=== PATIENT | female | born 1945 | race Caucasian/White ===

== ENCOUNTER 2020-09-04 18:04 | Inpatient (IN) | payer OTHER, MEDICARE ==
--- OUTSIDE RECORDS SUMMARY | 2020-09-04 18:55 | XMS ---
:1945 Author Organization [facility] Care Team Providers Name Role Phone Harsha Obregon Unavailable Unavailable SabasHarsha paredes Unavailable Unavailable Ringstad, Sasha Unavailable Unavailable Ringstad, Sasha Unavailable Unavailable Ringstad, Sasha Unavailable Unavailable Ringstad, Sasha Unavailable Unavailable Ringstad, Sasha Unavailable Unavailable Ringstad, Sasha Unavailable Unavailable Ringstad, Sasha Unavailable Unavailable Ringstad, Sasha Unavailable Unavailable Ringstad, Sasha Unavailable Unavailable Ringstad, Sasha Unavailable Unavailable Ringstad, Sasha Unavailable Unavailable Enrrique Aguilar Unavailable [phone] Vazquez, Makenna Unavailable Unavailable Vazquez, Makenna Unavailable Unavailable Vazquez, Makenna Unavailable Unavailable Vazquez, Makenna Unavailable Unavailable Vazquez, Makenna Unavailable Unavailable Vazquez, Makenna Unavailable Unavailable Vazquez, Makenna Unavailable Unavailable Vazquez, Makenna Unavailable Unavailable Vazquez, Makenna Unavailable Unavailable Vazquez, Makenna Unavailable Unavailable Aszalos, Shannan Julisa Unavailable Unavailable Aszalos, Julisa Unavailable Unavailable Aszalos, Julisa Unavailable Unavailable Aszalos, Julisa Unavailable Unavailable Aszalos, Julisa Unavailable Unavailable Aszalos, Julisa Unavailable Unavailable Aszalos, Julisa Unavailable Unavailable Aszalos, Julisa Unavailable Unavailable Aszalos, Julisa Unavailable Unavailable Lisa Oates MD Unavailable Unavailable Lisa Oates MD Unavailable Unavailable Иван, Lisa MD Unavailable Unavailable Иван, Lisa MD Unavailable Unavailable Иван, Lisa MD Unavailable Unavailable Иван, Lisa MD Unavailable Unavailable Иван, Lisa MD Unavailable Unavailable Иван, Lisa MD Unavailable Unavailable Иван, Lisa MD Unavailable Unavailable Иван, Lisa MD Unavailable Unavailable Иван, Lisa MD Unavailable Unavailable Иван, Lisa MD Unavailable Unavailable Иван, Lisa MD Unavailable Unavailable Иван, Lisa MD Unavailable Unavailable Иван, Lisa MD Unavailable Unavailable Coloka-Kump, DO Unavailable Unavailable Coloka-Kump, DO Unavailable Unavailable Coloka-Kump, DO Unavailable Unavailable Coloka-Kump, DO Unavailable Unavailable Coloka-Kump, DO Unavailable Unavailable Coloka-Kump, DO Unavailable Unavailable Coloka-Kump, DO Unavailable Unavailable Coloka-Kump, DO Unavailable Unavailable Coloka-Kump, DO Unavailable Unavailable Coloka-Kump, DO Unavailable Unavailable Coloka-Kump, DO Unavailable Unavailable Coloka-Kump, DO Unavailable Unavailable Coloka-Kump, DO Unavailable Unavailable Coloka-Kump, DO Unavailable Unavailable Coloka-Kump, DO Unavailable Unavailable Coloka-Kump, DO Unavailable Unavailable Coloka-Kump, DO Unavailable Unavailable Ringstad Unavailable Unavailable Ringstad Unavailable Unavailable Ringstad Unavailable Unavailable Ringstad Unavailable Unavailable Ringstad Unavailable Unavailable Ringstad Unavailable Unavailable Ringstad Unavailable Unavailable Ringstad Unavailable Unavailable Ringstad Unavailable Unavailable Ringstad Unavailable Unavailable Ringstad Unavailable Unavailable Re-disclosure Warning The records that you are about to access may contain information from federally- assisted alcohol or drug abuse programs. If such information is present, then the following federally mandated warning applies: This information has been disclosed to you from records protected by federal confidentiality rules (42 CFR part 2). The federal rules prohibit you from making any further disclosure of this information unless further disclosure is expressly permitted by the written consent of the person to whom it pertains or as otherwise permitted by 42 CFR part 2. A general authorization for the release of medical or other information is NOT sufficient for this purpose. The Federal rules restrict any use of the information to criminally investigate or prosecute any alcohol or drug abuse patient.The records that you are about to access may contain highly sensitive health information, the redisclosure of which is protected by Article 27-F of the [place] State Public Health law. If you continue you may haveaccess to information: Regarding HIV / AIDS; Provided by facilities licensed or operated by the [facility] Office of Mental Health; or Provided by the [facility] Office for People With Developmental Disabilities. If such information is present, then the following [facility] mandated warning applies: This information has been disclosed to you from confidential records which are protected by state law. State law prohibits you from making any further disclosure of this information without the specific written consent of the person to whom it pertains, or as otherwise permitted by law. Any unauthorized further disclosure in violation of state law may result in a fine or fpc sentence or both. A general authorization for the release of medical or other information is NOT sufficient authorization for further disclosure. Encounters Encounter Providers Location Date Indications Data Source(s ) Attender: [facility] 07/28/2020 NEXT ( int [facility] 05:06:00 [facility] [place] PM EDT - Center) 07/28/2020 05:06:00 PM EDT Outpatient 06/23/2020 [facility] 12:48:00 Medical Center PM EDT Outpatient 06/23/2020 [facility] 12:00:00 Medical Center AM EDT Outpatient Attender: Makenna Aden 06/11/2020 [facility] VelezAdmitter: 04:53:00 Medical Ce nter Makenna PM EDT VelezReferrer: Makenna Vazquez OutpatientOFFICE/ Attender: [facility] 06/11/2020 MELISSA ([facility] OUTPATIENT VISIT, [facility] 04:53:00 [facility] Medical EST PM EDT - Center) 06/11/2020 04:53:00 PM EDT Attender: [facility] 06/11/2020 CLARITZA N ([facility] 01:15:00 [facility] Medic al PM EDT - Center) 06/11/2020 01:15:00 PM EDT Outpatient 06/11/2020 [facility] 11:25:00 Medical Center AM EDT Outpatient 06/11/2020 [facility] 12:00:00 Medical Center AM EDT Attender: [facility] 04/29/2020 [facility] [place] AM EDT - Center) 04/29/2020 09:15:00 AM EDT Attender: [facility] 03/28/2020 MELISSA ( int [facility] 02:18:00 [facility] [place] PM EDT - Center) 03/28/2020 02:18:00 PM EDT Attender: [facility] 02/01/2020 [facility] ( int [facility] 12:00:00 [facility] [place] PM EDT - Center) 02/01/2020 12:00:00 PM EDT Outpatient Attender: H 02/01/2020 [facility] Sasha 11:01:00 Medical Center RingstadAdmitter AM EDT : Sasha Sosaerrer : Sasha Falcon OutpatientOFFICE/ Attender: [facility] 02/01/2020 [facility] ([facility] OUTPATIENT VISIT, [facility] 11:01:00 [facility] Medical [facility] AM EDT - Center) 02/01/2020 11:01:00 AM EDT Outpatient 02/01/2020 [facility] 10:38:00 Medical [place] AM EDT Outpatient 02/01/2020 [facility] 10:37:00 Medical [place] AM EDT Outpatient 02/01/2020 [facility] 12:00:00 Medical Center AM EDT Outpatient Attender: Amy Aden 01/18/2020 [facility] Jacque sephs [facility] 02:11:00 Medical Kunal r DOAdmitter: PM EST Rodika Coloka-Kump DOReferrer: Rodika Coloka-Kump DO OutpatientOFFICE/ Attender: [facility] 01/18/2020 KARLEEGEN ([facility] OUTPATIENT VISIT, [facility] 02:11:00 [facility] Medical [facility] PM EST - Center) 01/18/2020 02:11:00 PM EST Outpatient 01/18/2020 [facility] 12:23:00 Medical Center PM EST Outpatient 01/18/2020 [facility] 12:00:00 Medical Center AM EST Attender: [facility] 01/16/2020 KARLEE EN ([facility] 04:27:00 [facility] PM EST - Center) 01/16/2020 04:27:00 PM EST Outpatient 01/08/2020 [facility] 11:32:00 Medical Center AM EST Outpatient Attender: Amy Aden 01/08/2020 [facility] 11:08:00 Medical Rebele r DOAdmitter: AM EST Rodika Col[facility]ump DOReferrer: Amy Torresoka-Kumbekah DO OutpatientOFFICE/ Attender: Harsha [facility] 01/08/2020 NEXTGEN [facility] 11[facility]08[facility]00 [facility] EST AM EST - Center) 01/08/2020 11:08:00 AM EST Outpatient 01/08/2020 [facility] 12:00:00 Medical Center AM EST Attender: [facility] 12/11/2019 NEXTGE N ([facility] 11:20:00 [facility] AM EST - Center) 12/11/2019 11:20:00 AM EST Attender: [facility] 09/24/2019 NEXTGE N ([facility] 05:08:00 [facility] PM EST - Center) 09/24/2019 05:08:00 PM EST Attender: [facility] 09/13/2019 NEXTGE N ([facility] 11:02:00 [facility] l AM EDT - Center) 09/13/2019 11:02:00 AM EDT Attender: [facility] 07/16/2019 NEXTGE N ([facility] 11:05:00 [facility] l AM EDT - Center) 07/16/2019 11:05:00 AM EDT Medications Medication Brand Start Product Dose Route Administrative Pharmacy [facility] Indications Reaction Description Data Name Date Form Instructions Instructions Source(s) Losartan [facility] active TAKE 1 NEX TGEN Potassium AN 2020 TABLET(50 ([place] t 50 MG Oral 50MG 12:00: MG) BY MOUTH Adore Tablet TABLET 00 AM EVERY DAY Medic al [facility] EDT [place]) 50MG TABLETS Losartan [facility] complet TAKE 1 NE XTGEN Potassium AN 2020 ed TABLET(50 ([place] t 50 MG Oral 50MG 12:00: MG) BY MOUTH Adore Tablet TABLET 00 AM EVERY DAY [facility] al LOSARTAN EDT [place]) 50MG TABLETS Losartan [facility] complet TAKE 1 NE XTGEN Potassium AN 2020 ed TABLET(50 ([place] t 50 MG Oral 50MG 12:00: MG) BY MOUTH Adore Tablet TABLET 00 AM EVERY DAY Medic al LOSARTAN EDT [place]) 50MG TABLETS Losartan [facility] complet TAKE 1 NE XTGEN Potassium an 50 2019 ed TABLET(50 (Diaz nt 50 MG Oral mg 12:00: MG) BY MOUTH Adore Tablet tablet 00 AM EVERY DAY Medic al losartan 50 EDT Center) mg tablet Medication administered onsite 12 HR Mucinex DM 30 01/08/2020 1.00 ORAL active 12 HR NEXTGEN Dextromethorphan mg-600 mg 12:00:00 AM {tablet} dextromethorphan ([facility] Hydrobromide 30 tablet,extended EST hydrobromide 30 Adore MG / Guaifenesin release 12 hr MG / guaifenesin Medical 600 MG Extended 600 MG Ex tended Center) Release Oral Release Oral Tablet [Mucinex Tablet [M ucinex DM] Mucinex DM 30 DM] mg-600 mg tablet,extended release 12 hr 120 ACTUAT Pulmicort 01/08/2020 1.00 RESPI active 120 ACTUAT NEXTGEN Budesonide 0.16 Flexhaler 180 12:00:00 AM {puff} RATOR budesonide 0.18 (Saint MG/ACTUAT Dry mcg/actuation EST Y MG /ACTUAT Dry Adore Powder Inhaler breath activated (INHA Powder Inhaler Medical [Pulmicort] LATIO [Pulmicort] Center) Pulmicort N) Flexhaler 180 mcg/actuation breath activated Azithromycin 250 azithromycin 250 01/08/2020 2.00 ORAL complet take 2 tablet by NEXTGEN MG Oral Tablet mg tablet 12:00:00 AM {tbl} ed oral route every (Saint azithromycin 250 EST day for 1 day Adore mg tablet then 1 tablet M edical (250 mg) by oral Lorna ter) route once daily for 4 days Chlorthalidone 25 chlorthalidone 01/08/2020 1.00 ORAL active take 1 tablet by NEXTGEN MG Oral Tablet 25 mg tablet 12:00:00 AM {tablet} oral route every (Saint chlorthalidone 25 EST day Jacque sephs mg tablet Medical [place]) Losartan losartan 50 mg 01/08/2020 complet TAKE 1 TABLET(50 NEXTGEN Potassium 50 MG tablet 12:00:00 AM ed MG) BY MOUTH (Saint Oral Tablet EST EVERY DAY Chris ephs losartan 50 mg Medic al tablet Center) atorvastatin 20 atorvastatin 20 01/08/2020 active TAKE 1 TABLET BY NEXTGEN MG Oral Tablet mg tablet 12:00:00 AM ORAL ROUTE EVERY ([facility] atorvastatin 20 EST DAY [facility] mg tablet Medical Center) Losartan LOSARTAN 50MG 12/11/2019 complet TAKE 1 TABLET(50 NEXTGEN Potassium 50 MG TABLETS 12:00:00 AM ed MG) BY MOUTH (Saint Oral Tablet EST EVERY DAY Chris ephs LOSARTAN 50MG Medica l TABLETS [place]) atorvastatin 20 atorvastatin 20 09/24/2019 complet TAKE 1 TABLET BY NEXTGEN MG Oral Tablet mg tablet 12:00:00 AM ed ORAL ROUTE EVERY ([facility] atorvastatin 20 EST DAY [employer] [employer] mg tablet Medical [place]) Losartan losartan 50 mg 09/13/2019 complet TAKE 1 TABLET NEXTGEN Potassium 50 MG tablet 12:00:00 AM ed (50MG) BY ORAL (Saint Oral Tablet EDT ROUTE EVERY D AY Adore losartan 50 mg Medic al tablet Center) Losartan losartan 50 mg 07/16/2019 complet TAKE 1 TABLET NEXTGEN Potassium 50 MG tablet 12:00:00 AM ed (50MG) BY ORAL (Saint Oral Tablet EDT ROUTE EVERY D AY Adore losartan 50 mg Medic al tablet [place]) atorvastatin 20 atorvastatin 20 05/10/2019 1.00 ORAL c omplet take 1 tablet by NEXTGEN MG Oral Tablet mg tablet 12:00:00 AM {tbl} ed oral route every ([facility] atorvastatin 20 EDT day [facility] mg tablet [facility]) Losartan losartan 50 mg 05/10/2019 complet TAKE 1 TABLET NEXTGEN Potassium 50 MG tablet 12:00:00 AM ed (50MG) BY ORAL (Saint Oral Tablet EDT ROUTE EVERY D AY Adore losartan 50 mg Medic al tablet Center) Chlorthalidone 25 chlorthalidone 05/10/2019 1.00 ORAL complet take 1 tablet by NEXTGEN MG Oral Tablet 25 mg tablet 12:00:00 AM {tbl} ed oral route every ([facility] chlorthalidone 25 EDT day Jacque sephs mg tablet Medical [place]) Insurance Providers Payer name Policy type Policy ID Covered Covered democrat's Policy P oriana / Coverage democrat ID relationship to Pichardo Inf ormation type pichardo [facility] [id number] SP [id number] CARE OPTIONS MEDICARE [id number] SP [id number] M [id number] 01 [id number] [facility] O [id number] 01 [id number] M [id number] A Problems, Conditions, and Diagnoses Code Display Name Description Problem Type Effective Dates Data Source(s) K58.0 Irritable bowel IRRITABLE BOWEL Diagnosis 06/11/2020 [place] 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 DIARRHEA Z71.89 Other specified OTHER SPECIFIED Diagnosis 02/01/2020 [place] silvia Avitia counseling COUNSELING 11:01:00 AM EDT Medical C enter E78.5 Hyperlipidemia, HYPERLIPIDEMIA, Diagnosis 02/01/2020 [place] Pillais unspecified UNSPECIFIED 11:01:00 AM EDT Medical Center I10 Essential ESSENTIAL Diagnosis 02/01/2020 [facility] Avitia (primary) (PRIMARY) 11:01:00 AM EDT Medical C enter hypertension HYPERTENSION Z13.9 Encounter for ENCOUNTER FOR Diagnosis 01/18/2020 [facility] Jacque monroy screening, SCREENING, 02:11:00 PM EST Medical C enter unspecified UNSPECIFIED Z00.00 Encounter for ENCNTR FOR GENERAL Diagnosis 01/18/2020 Diaz zafar Adore general adult ADULT MEDICAL EXAM 02:11:00 PM [facility] medical W/O ABNORMAL examination FINDINGS without abnormal findings R05 Cough COUGH Diagnosis 01/08/2020 [facility] Pillais 11:08:00 AM EST Medical C enter Surgeries/Procedures Procedure Description Date Indications Data Source(s) OFFICE/OUTPATIENT VISIT, 06/11/2020 NEX TGEN ([facility] EST 12:00:00 AM EDT [facility] 06/11/2020 [place]) 12:00:00 AM EDT OFFICE/OUTPATIENT VISIT, 02/01/2020 NEX TGEN ([facility] EST 12:00:00 AM EDT [facility] 02/01/2020 [place]) 12:00:00 AM EDT OFFICE/OUTPATIENT VISIT, 01/18/2020 NEX TGEN ([facility] 12:00:[address] [facility] 01/18/2020 [place]) 12:00:00 AM EST ROUTINE VENIPUNCTURE 01/18/2020 NEXTGEN ([facility] 12:00:[address] [facility] 01/18/2020 [place]) 12:00:00 AM EST OFFICE/OUTPATIENT VISIT, 01/08/2020 NEX TGEN ([facility] EST 12:00:00 AM EST [facility] 01/08/2020 [place]) 12:00:00 AM EST Results ID Date Data Source [id number] 08/30/2020 09:17:00 AM EDT [facility] Name Value Range Interpretation Description Data Sup porting Code Source(s) Document(s ) 2019 Novel [facility] Coronavirus RNA Interpretation Unspecified Specimen Qualitative JACOB Probe Detection This lab was ordered by [facility][id number] and reported by [facility]. ID Date Data Source [id number] 07/13/2020 05:04:00 PM EDT [facility] Name Value Range Interpretation Code Description Data Dipti rce(s) Supporting Document(s ) SARS-CoV-2 [facility] N gene Resp Ql JACOB+probe This lab was ordered by [facility] and reported by [facility]. ID Date Data Source Liver 06/12/2020 09:39:00 AM EDT [facility] Profile.[id number] Name Value Range Interpretation Description Data Sup porting Code Source(s) Document(s ) Aspartate 14-36 <content [facility] aminotransferase styleCode="Bold"> Tristen hs [Enzymatic Aspartate Medical activity/volume] Aminotransferase Center in Serum or Plasma (AST) </content>24 IU/L<content styleCode="Italic s"> (14-36 IU/L)</content> Bilirubin.total 0.2-1.3 <content [facility] [Mass/volume] in styleCode="Bold"> Tristen hs Serum or Plasma Bilirubin Total Medical </content>0.4 Center MG/DL<content styleCode="Italic s"> (0.2-1.3 MG/DL)</content> Alanine 7-30 <content [facility] aminotransferase styleCode="Bold"> Tristen hs [Enzymatic Alanine Medical activity/volume] Aminotransferase Center in Serum or Plasma (ALT) </content>14 IU/L<content styleCode="Italic s"> (7-30 IU/L)</content> Alkaline 38-126 <content [facility] phosphatase styleCode="Bold"> Adore [Enzymatic Alkaline Medical activity/volume] Phosphatase (ALP) Cente r in Serum or Plasma </content>72 IU/L<content styleCode="Italic s"> (38-126 IU/L)</content> Albumin 3.5-5.0 <content [facility] [Mass/volume] in styleCode="Bold"> Tristen hs Serum or Plasma Albumin Medical </content>4.0 Center G/DL<content styleCode="Italic s"> (3.5-5.0 G/DL)</content> ID Date Data Source HematologyRou.[id number] 06/12/2020 09:39:00 AM EDT [facility] 0400 Name Value Range Interpretation Description Data Sup porting Code Source(s) Document(s ) Leukocytes 4.4-11.0 <content [facility] [#/volume] in styleCode="Bold Adore Blood by ">White Blood Medical Automated count Cell Count Center </content>6.38 KCUMM<content styleCode="Ital ics"> (4.4-11.0 KCUMM)</content > Erythrocytes 4.0-5.1 <content Saint [#/volume] in styleCode="Bold Adore Blood by ">Red Blood Medical Automated count Cell Count Center </content>4.11 MCUMM<content styleCode="Ital ics"> (4.0-5.1 MCUMM)</content > Hemoglobin 12.3-16. <content Saint [Mass/volume] in 0 styleCode="Bold Adore Blood ">Hemoglobin Medical </content>12.8 Center G/DL<content styleCode="Ital ics"> (12.3-16.0 G/DL)</content> Hematocrit 36.0-46. <content [facility] [Volume 0 styleCode="Bold Adore Fraction] of ">Hematocrit Medical Blood by </content>37.9 Center Automated count %<content styleCode="Ital ics"> (36.0-46.0 %)</content> Erythrocyte mean 26.0-34. <content [facility] corpuscular 0 styleCode="Bold Adore hemoglobin ">Mean Medical [Entitic mass] Corposcular Center by Automated Hemoglobin count </content>31.1 PG<content styleCode="Ital ics"> (26.0-34.0 PG)</content> Erythrocyte mean 80.0-100 <content [facility] corpuscular .0 styleCode="Bold Adore volume [Entitic ">Mean Medical volume] by Corpuscular Center Automated count Volume </content>92.2 FL<content styleCode="Ital ics"> (80.0-100.0 FL)</content> Erythrocyte mean 32.0-37. <content [facility] corpuscular 0 styleCode="Bold Adore hemoglobin ">Mean Corpus. Medical concentration Hgb Center [Mass/volume] by Concentration Automated count (MCHC) </content>33.8 G/DL<content styleCode="Ital ics"> (32.0-37.0 G/DL)</content> Platelets 130-400 <content [facility] [#/volume] in styleCode="Bold Adore Blood by ">Platelet Medical Automated count Count Center </content>327 KCUMM<content styleCode="Ital ics"> (130-400 KCUMM)</content > Erythrocyte 11.5-14. <content [facility] distribution 5 styleCode="Bold Adore width [Ratio] by ">Red Cell Medical Automated count Distribution Center Width </content>13.1 %<content styleCode="Ital ics"> (11.5-14.5 %)</content> Platelet mean 8.0-11.0 <content [facility] volume [Entitic styleCode="Bold Adore volume] in Blood ">Mean Platelet Medical by Automated Volume Center count </content>9.8 FL<content styleCode="Ital ics"> (8.0-11.0 FL)</content> Lymphocytes 24.0-44. <content [facility] [#/volume] in 0 styleCode="Bold Adore Blood by ">Lymphocyte Medical Automated count </content>33.4 Center %<content styleCode="Ital ics"> (24.0-44.0 %)</content> Neutrophils 36-66 <content [facility] [#/volume] in styleCode="Bold Adore Blood by ">Neutrophil Medical Automated count </content>56.8 Center %<content styleCode="Ital ics"> (36-66 %)</content> UNK 1.6-7.3 <content Saint styleCode="Bold Adore ">Neutrophil Medical Count Center </content>3.63 KCUMM<content styleCode="Ital ics"> (1.6-7.3 KCUMM)</content > UNK 1.0-4.8 <content Saint styleCode="Bold Adore ">Lymphocyte Medical Count Center </content>2.13 KCUMM<content styleCode="Ital ics"> (1.0-4.8 KCUMM)</content > UNK 0.2-0.9 <content Saint styleCode="Bold Adore ">Monocyte Medical Count Center </content>0.45 KCUMM<content styleCode="Ital ics"> (0.2-0.9 KCUMM)</content > UNK 0.0-0.6 <content Saint styleCode="Bold Adore ">Eosinophil Medical Count Center </content>0.11 KCUMM<content styleCode="Ital ics"> (0.0-0.6 KCUMM)</content > Eosinophils 0-5.0 <content Saint [#/volume] in styleCode="Bold Adore Blood by ">Eosinophil Medical Automated count </content>1.7 Center %<content styleCode="Ital ics"> (0-5.0 %)</content> Monocytes 3.0-10.0 <content [facility] [#/volume] in styleCode="Bold Adore Blood by ">Monocyte Medical Automated count </content>7.1 Center %<content styleCode="Ital ics"> (3.0-10.0 %)</content> UNK 0.0-0.3 <content Saint styleCode="Bold Adore ">Basophil Medical Count Center </content>0.03 KCUMM<content styleCode="Ital ics"> (0.0-0.3 KCUMM)</content > UNK 0.0 <content Saint styleCode="Bold Adore ">Nucleated Red Medical Blood Cell Center Count </content>0.00 KCUMM<content styleCode="Ital ics"> (0.0 KCUMM)</content > Basophils 0.0-1.0 <content Saint [#/volume] in styleCode="Bold Adore Blood by ">Basophil Medical Automated count </content>0.5 Center %<content styleCode="Ital ics"> (0.0-1.0 %)</content> UNK 0 <content Saint styleCode="Bold Adore ">Nucleated Red Medical Blood Cell Center </content>0.0 /100<content styleCode="Ital ics"> (0 /100)</content> UNK < 1 <content Saint styleCode="Bold Adore ">Immature Medical Granulocyte Center Ratio </content>0.5 %<content styleCode="Ital ics"> (< 1 %)</content> UNK 0-0.1 <content Saint styleCode="Bold Adore ">Immature Medical Granulocyte Center Count </content>0.03 KCUMM<content styleCode="Ital ics"> (0-0.1 KCUMM)</content > ID Date Data Source GFR(Creatinine).[id number] 06/12/2020 09:39:00 AM EDT [facility] 0-0400 Name Value Range Interpretation Code Description Data Dipti rce(s) Supporting Document(s ) UNK > 60 <content [facility] styleCode="Bold"> Medical Cent er EGFR </content>86 GFR<content styleCode="Italic s"> (> 60 GFR)</content> ID Date Data Source CHMROUTINECCDA.[id number] 06/12/2020 09:39:00 AM EDT [facility] -0400 Name Value Range Interpretation Description Data Sup porting Code Source(s) Document(s ) UNK 2.3-3.5 <content [facility] styleCode="Bold Medical ">Globulin Center </content>3.0 G/DL<content styleCode="Ital ics"> (2.3-3.5 G/DL)</content> Protein 6.3-8.2 <content [facility] [Mass/volum styleCode="Bold Medical e] in Serum ">Total Protein Center or Plasma </content>7.0 G/DL<content styleCode="Ital ics"> (6.3-8.2 G/DL)</content> UNK >= 1.0 <content [facility] styleCode="Bold Medical ">AG Ratio Center </content>1.3 <content styleCode="Ital ics"> (>= 1.0 )</content> ID Date Data Source [facility] HOSP[facility].[id number] 06/12/2020 09:39:00 AM EDT [facility] Name Value Range Interpretation Description Data Sup porting Code Source(s) Document(s ) Chloride 98-107 Above high <content [facility] [Moles/volume] in normal styleCode="Bold"> Loco phs Serum or Plasma Chloride Medical </content>110 Center MEQ/L H<content styleCode="Italic s"> (98-107 MEQ/L)</content> Sodium 137-145 <content [facility] [Moles/volume] in styleCode="Bold"> Loco phs Serum or Plasma Sodium Medical </content>140 Center MEQ/L<content styleCode="Italic s"> (137-145 MEQ/L)</content> Potassium 3.5-5.3 <content [facility] [Moles/volume] in styleCode="Bold"> Loco phs Serum or Plasma Potassium Medical </content>4.4 Center MEQ/L<content styleCode="Italic s"> (3.5-5.3 MEQ/L)</content> Carbon dioxide, 22-30 <content [facility] total styleCode="Bold"> Adore [Moles/volume] in Carbon Dioxide Medical Serum or Plasma </content>22 Center MEQ/L<content styleCode="Italic s"> (22-30 MEQ/L)</content> Calcium 8.4-10. <content [facility] [Mass/volume] in 2 styleCode="Bold"> Tristen hs Serum or Plasma Calcium Medical </content>9.5 Center MG/DL<content styleCode="Italic s"> (8.4-10.2 MG/DL)</content> Glucose 74-106 <content [facility] [Mass/volume] in styleCode="Bold"> Tristen hs Serum or Plasma Glucose Medical </content>99 Center MG/DL<content styleCode="Italic s"> (74-106 MG/DL)</content> UNK 7-17 <content Saint styleCode="Bold"> Adore BUN </content>17 Medical MG/DL<content Center styleCode="Italic s"> (7-17 MG/DL)</content> Creatinine 0.5-1.3 <content [facility] [Mass/volume] in styleCode="Bold"> Tristen hs Serum or Plasma Creatinine Medical </content>0.7 Center MG/DL<content styleCode="Italic s"> (0.5-1.3 MG/DL)</content> UNK > 60 <content Saint styleCode="Bold"> [facility] EGFR </content>86 Medical GFR<content Center styleCode="Italic s"> (> 60 GFR)</content> Alanine 7-30 <content Saint aminotransferase styleCode="Bold"> Tristen hs [Enzymatic Alanine Medical activity/volume] Aminotransferase Center in Serum or Plasma (ALT) </content>14 IU/L<content styleCode="Italic s"> (7-30 IU/L)</content> Alkaline 38-126 <content Saint phosphatase styleCode="Bold"> [facility] [Enzymatic Alkaline Medical activity/volume] Phosphatase (ALP) Cente r in Serum or Plasma </content>72 IU/L<content styleCode="Italic s"> (38-126 IU/L)</content> Aspartate 14-36 <content Saint aminotransferase styleCode="Bold"> Tristen hs [Enzymatic Aspartate Medical activity/volume] Aminotransferase Center in Serum or Plasma (AST) </content>24 IU/L<content styleCode="Italic s"> (14-36 IU/L)</content> Bilirubin.total 0.2-1.3 <content [facility] [Mass/volume] in styleCode="Bold"> Tristen hs Serum or Plasma Bilirubin Total Medical </content>0.4 Center MG/DL<content styleCode="Italic s"> (0.2-1.3 MG/DL)</content> Albumin 3.5-5.0 <content [facility] [Mass/volume] in styleCode="Bold"> Tristen hs Serum or Plasma Albumin Medical </content>4.0 Center G/DL<content styleCode="Italic s"> (3.5-5.0 G/DL)</content> ID Date Data Source Urinalysis.[id number] 06/11/2020 07:00:00 PM EDT [facility] 0 Name Value Range Interpretation Description Data Sup porting Code Source(s) Document(s ) UNK CLEAR <content Saint styleCode="Tommy Pillais d">Urine Medical Clarity Center </content>CLOU DY <content styleCode="Carina lics"> (CLEAR )</content> Color of Urine YELLOW <content Saint styleCode="[facility] d">Color, Medical Urine Center </content>YELL OW <content styleCode="Carina lics"> (YELLOW )</content> UNK NEGATIVE <content Saint styleCode="Tommy Adore d">Urine Medical Bilirubin Center </content>NEGA TIVE <content styleCode="Carina lics"> (NEGATIVE )</content> Specific 1.015-1.02 Above high <content Saint gravity of 5 normal styleCode="Tommy Avitia Urine by Test d">Urine Medical strip Specific Center [place] </content>>= 1.030 H<content styleCode="Carina lics"> (1.015-1.025 )</content> Ketones NEGATIVE <content Saint [Mass/volume] styleCode="Tommy Adore in Urine by d">Urine Medical Test strip Ketone Center </content>NEGA TIVE MG/DL<content styleCode="Carina lics"> (NEGATIVE MG/DL)</conten t> Glucose NEGATIVE <content Saint [Mass/volume] styleCode="Tommy Adore in Urine by d">Urine Medical Test strip Glucose Center </content>NEGA TIVE MG/DL<content styleCode="Carina lics"> (NEGATIVE MG/DL)</conten t> Hemoglobin NEGATIVE <content Saint [Presence] in styleCode="Tommy Pillais Urine by Test d">Urine Blood Medical strip </content>NEGA Center TIVE <content styleCode="Carina lics"> (NEGATIVE )</content> Protein NEGATIVE <content Saint [Mass/volume] styleCode="Tommy Adore in Urine by d">Urine Medical Test strip Protein Center </content>NEGA TIVE MG/DL<content styleCode="Carina lics"> (NEGATIVE MG/DL)</conten t> Urobilinogen 0.2-1.0 <content Saint [Units/volume] styleCode="Tommy Avitia in Urine by d">Urine Medical Test strip Urobilinogen Center </content>0.2 MG/DL<content styleCode="Carina lics"> (0.2-1.0 MG/DL)</conten t> pH of Urine by 4.5-8.0 <content Saint Test strip styleCode="Tomym Adore d">Urine pH Medical </content>6.0 Center <content styleCode="Carina lics"> (4.5-8.0 )</content> Leukocyte NEGATIVE <content Saint esterase styleCode="Tommy Pillais [Presence] in d">Urine Medical Urine by Test Leukocyte Center strip </content>NEGA TIVE <content styleCode="Carina lics"> (NEGATIVE )</content> Nitrite NEGATIVE <content Saint [Presence] in styleCode="Tommy Avitia Urine by Test d">Urine Medical strip Nitrite Center </content>NEGA TIVE <content styleCode="Carina lics"> (NEGATIVE )</content> ID Date Data Source Liver 01/22/2020 09:29:00 AM EST [facility] Profile.[id number] Name Value Range Interpretation Description Data Sup porting Code Source(s) Document(s ) Aspartate 14-36 <content Saint aminotransferase styleCode="Bold"> Tristen hs [Enzymatic Aspartate Medical activity/volume] Aminotransferase Center in Serum or Plasma (AST) </content>29 IU/L<content styleCode="Italic s"> (14-36 IU/L)</content> Alanine 7-30 <content [facility] aminotransferase styleCode="Bold"> Tristen hs [Enzymatic Alanine Medical activity/volume] Aminotransferase Center in Serum or Plasma (ALT) </content>20 IU/L<content styleCode="Italic s"> (7-30 IU/L)</content> Albumin 3.5-5.0 <content Saint [Mass/volume] in styleCode="Bold"> Tristen hs Serum or Plasma Albumin Medical </content>4.1 Center G/DL<content styleCode="Italic s"> (3.5-5.0 G/DL)</content> Bilirubin.total 0.2-1.3 <content [facility] [Mass/volume] in styleCode="Bold"> Tristen hs Serum or Plasma Bilirubin Total Medical </content>0.5 Center MG/DL<content styleCode="Italic s"> (0.2-1.3 MG/DL)</content> Alkaline 38-126 <content [facility] phosphatase styleCode="Bold"> Adore [Enzymatic Alkaline Medical activity/volume] Phosphatase (ALP) Cente r in Serum or Plasma </content>71 IU/L<content styleCode="Italic s"> (38-126 IU/L)</content> ID Date Data Source LIPID.[id number] 01/22/2020 09:29:00 AM EST [facility] Name Value Range Interpretation Description Data Sup porting Code Source(s) Document(s ) UNK > 60 <content Saint styleCode="Tommy Adore d">HDL- Medical Cholesterol Center </content>69 MG/DL<content styleCode="Carina lics"> (> 60 MG/DL)</conten t> Triglyceride < 150 <content Saint [Mass/volume] in styleCode="Tommy Adore Serum or Plasma d">Triglycerid [facility] </content>87 MG/DL<content styleCode="Carina lics"> (< 150 MG/DL)</conten t> UNK < 100 <content Saint styleCode="Tommy Adore d">LDL-Cholest [facility] </content>83 MG/DL<content styleCode="Carina lics"> (< 100 MG/DL)</conten t> Cholesterol -<200 <content Saint [Mass/volume] in styleCode="Tommy Adore Serum or Plasma d">Cholesterol Medical </content>169 Center MG/DL<content styleCode="Carina lics"> (-<200 MG/DL)</conten t> ID Date Data Source Hormones.[id number] 01/22/2020 09:29:00 AM EST [place] [facility] Center Name Value Range Interpretation Description Data Sup porting Code Source(s) Document(s ) Thyrotropin 0.465-4. <content Saint [Units/volume] 68 styleCode="Tommy Adore in Serum or d">Thyroid Medical Plasma by Stimulating Center Detection Hormone limit <= 0.05 </content>3.74 mIU/L MIU/L<content styleCode="Carina lics"> (0.465-4.68 MIU/L)</conten t> ID Date Data Source HematologyRou.[id number] 01/22/2020 09:29:00 AM EST [facility] 0400 Name Value Range Interpretation Description Data Sup porting Code Source(s) Document(s ) Erythrocytes 4.0-5.1 <content Saint [#/volume] in styleCode="Bold Adore Blood by ">Red Blood Medical Automated count Cell Count Center </content>4.23 MCUMM<content styleCode="Ital ics"> (4.0-5.1 MCUMM)</content > Leukocytes 4.4-11.0 <content Saint [#/volume] in styleCode="Bold Adore Blood by ">White Blood Medical Automated count Cell Count Center </content>5.03 KCUMM<content styleCode="Ital ics"> (4.4-11.0 KCUMM)</content > Hemoglobin 12.3-16. <content [facility] [Mass/volume] in 0 styleCode="Bold Adore Blood ">Hemoglobin Medical </content>12.9 Center G/DL<content styleCode="Ital ics"> (12.3-16.0 G/DL)</content> Erythrocyte 11.5-14. <content Saint distribution 5 styleCode="Bold Adore width [Ratio] by ">Red Cell Medical Automated count Distribution Center Width </content>13.5 %<content styleCode="Ital ics"> (11.5-14.5 %)</content> Erythrocyte mean 80.0-100 <content Saint corpuscular .0 styleCode="Bold Adore volume [Entitic ">Mean Medical volume] by Corpuscular Center Automated count Volume </content>91.7 FL<content styleCode="Ital ics"> (80.0-100.0 FL)</content> Erythrocyte mean 32.0-37. <content Saint corpuscular 0 styleCode="Bold Adore hemoglobin ">Mean Corpus. Medical concentration Hgb Center [Mass/volume] by Concentration Automated count (MCHC) </content>33.2 G/DL<content styleCode="Ital ics"> (32.0-37.0 G/DL)</content> Platelets 130-400 <content Saint [#/volume] in styleCode="Bold Adore Blood by ">Platelet Medical Automated count Count Center </content>331 KCUMM<content styleCode="Ital ics"> (130-400 KCUMM)</content > Erythrocyte mean 26.0-34. <content [facility] corpuscular 0 styleCode="Bold Adore hemoglobin ">Mean Medical [Entitic mass] Corposcular Center by Automated Hemoglobin count </content>30.5 PG<content styleCode="Ital ics"> (26.0-34.0 PG)</content> Hematocrit 36.0-46. <content Saint [Volume 0 styleCode="Bold Adore Fraction] of ">Hematocrit Medical Blood by </content>38.8 Center Automated count %<content styleCode="Ital ics"> (36.0-46.0 %)</content> Platelet mean 8.0-11.0 <content Saint volume [Entitic styleCode="Bold Adore volume] in Blood ">Mean Platelet Medical by Automated Volume Center count </content>10.0 FL<content styleCode="Ital ics"> (8.0-11.0 FL)</content> UNK 1.0-4.8 <content Saint styleCode="Bold Adore ">Lymphocyte Medical Count Center </content>2.19 KCUMM<content styleCode="Ital ics"> (1.0-4.8 KCUMM)</content > UNK 1.6-7.3 <content Saint styleCode="Bold Adore ">Neutrophil Medical Count Center </content>2.33 KCUMM<content styleCode="Ital ics"> (1.6-7.3 KCUMM)</content > Lymphocytes 24.0-44. <content Saint [#/volume] in 0 styleCode="Bold Adore Blood by ">Lymphocyte Medical Automated count </content>43.5 Center %<content styleCode="Ital ics"> (24.0-44.0 %)</content> Neutrophils 36-66 <content Saint [#/volume] in styleCode="Bold Adore Blood by ">Neutrophil Medical Automated count </content>46.3 Center %<content styleCode="Ital ics"> (36-66 %)</content> Monocytes 3.0-10.0 <content Saint [#/volume] in styleCode="Bold Adore Blood by ">Monocyte Medical Automated count </content>7.4 Center %<content styleCode="Ital ics"> (3.0-10.0 %)</content> UNK 0.0-0.6 <content Saint styleCode="Bold Adore ">Eosinophil Medical Count Center </content>0.07 KCUMM<content styleCode="Ital ics"> (0.0-0.6 KCUMM)</content > Basophils 0.0-1.0 <content Saint [#/volume] in styleCode="Bold Adore Blood by ">Basophil Medical Automated count </content>0.8 Center %<content styleCode="Ital ics"> (0.0-1.0 %)</content> Eosinophils 0-5.0 <content Saint [#/volume] in styleCode="Bold Adore Blood by ">Eosinophil Medical Automated count </content>1.4 Center %<content styleCode="Ital ics"> (0-5.0 %)</content> UNK 0.2-0.9 <content Saint styleCode="Bold Adore ">Monocyte Medical Count Center </content>0.37 KCUMM<content styleCode="Ital ics"> (0.2-0.9 KCUMM)</content > UNK 0-0.1 <content Saint styleCode="Bold Adore ">Immature Medical Granulocyte Center Count </content>0.03 KCUMM<content styleCode="Ital ics"> (0-0.1 KCUMM)</content > UNK 0.0-0.3 <content Saint styleCode="Bold Adore ">Basophil Medical Count Center </content>0.04 KCUMM<content styleCode="Ital ics"> (0.0-0.3 KCUMM)</content > UNK < 1 <content Saint styleCode="Bold Adore ">Immature Medical Granulocyte Center Ratio </content>0.6 %<content styleCode="Ital ics"> (< 1 %)</content> UNK 0 <content Saint styleCode="Bold Adore ">Nucleated Red Medical Blood Cell Center </content>0.0 /100<content styleCode="Ital ics"> (0 /100)</content> UNK 0.0 <content Saint styleCode="Bold Adore ">Nucleated Red Medical Blood Cell Center Count </content>0.00 KCUMM<content styleCode="Ital ics"> (0.0 KCUMM)</content > ID Date Data Source GFR(Creatinine).[id number] 01/22/2020 09:29:00 AM [facility] 0-0400 Name Value Range Interpretation Code Description Data Dipti rce(s) Supporting Document(s ) UNK > 60 <content [facility] styleCode="Bold"> Medical Cent er EGFR </content>86 GFR<content styleCode="Italic s"> (> 60 GFR)</content> ID Date Data Source CHMROUTINECCDA.[id number] 01/22/2020 09:29:00 AM [facility] -0400 Name Value Range Interpretation Description Data Sup porting Code Source(s) Document(s ) UNK 4.2-5.8 <content [facility] styleCode="Bold Medical ">Hemoglobin Center A1C </content>5.5 %<content styleCode="Ital ics"> (4.2-5.8 %)</content> UNK >= 1.0 <content [facility] styleCode="Bold Medical ">AG Ratio Center </content>1.4 <content styleCode="Ital ics"> (>= 1.0 )</content> UNK 2.3-3.5 <content [facility] styleCode="Bold Medical ">Globulin Center </content>2.9 G/DL<content styleCode="Ital ics"> (2.3-3.5 G/DL)</content> Protein 6.3-8.2 <content Saint [facility] [Mass/volum styleCode="Bold Medical e] in Serum ">Total Protein Center or Plasma </content>7.0 G/DL<content styleCode="Ital ics"> (6.3-8.2 G/DL)</content> ID Date Data Source BloodBank.[id number] 01/22/2020 09:29:00 AM EST [facility] Name Value Range Interpretation Code Description Data Dipti rce(s) Supporting Document(s ) UNK NEGATIVE <content [facility] styleCode="Bold" Medical Cente r >Antibody Screen </content>NEGATI VE <content styleCode="Itali cs"> (NEGATIVE )</content> UNK <content [facility] styleCode="Bold" Medical Cente r >RH Type </content>NEGATI VE (Reference Range: not available)
UNK <content [facility] styleCode="Bold" Medical Cente r >Blood Type </content>GROUP B (Reference Range: not available)
ID Date Data Source [facility].[id number] 01/22/2020 09:29:00 AM EST [facility] Center Name Value Range Interpretation Description Data Sup porting Code Source(s) Document(s ) Carbon dioxide, 22-30 <content Saint total styleCode="Bold"> Adore [Moles/volume] in Carbon Dioxide Medical Serum or Plasma </content>30 Center MEQ/L<content styleCode="Italic s"> (22-30 MEQ/L)</content> Sodium 137-145 <content Saint [Moles/volume] in styleCode="Bold"> Loco phs Serum or Plasma Sodium Medical </content>140 Center MEQ/L<content styleCode="Italic s"> (137-145 MEQ/L)</content> Potassium 3.5-5.3 <content Saint [Moles/volume] in styleCode="Bold"> [facility] Serum or Plasma Potassium Medical </content>4.6 Center MEQ/L<content styleCode="Italic s"> (3.5-5.3 MEQ/L)</content> Chloride 98-107 <content Saint [Moles/volume] in styleCode="Bold"> Loco phs Serum or Plasma Chloride Medical </content>106 Center MEQ/L<content styleCode="Italic s"> (98-107 MEQ/L)</content> Creatinine 0.5-1.3 <content Saint [Mass/volume] in styleCode="Bold"> Tristen hs Serum or Plasma Creatinine Medical </content>0.7 Center MG/DL<content styleCode="Italic s"> (0.5-1.3 MG/DL)</content> Calcium 8.4-10. <content Saint [Mass/volume] in 2 styleCode="Bold"> Tristen hs Serum or Plasma Calcium Medical </content>9.8 Center MG/DL<content styleCode="Italic s"> (8.4-10.2 MG/DL)</content> Glucose 74-106 <content Saint [Mass/volume] in styleCode="Bold"> Tristen hs Serum or Plasma Glucose Medical </content>99 Center MG/DL<content styleCode="Italic s"> (74-106 MG/DL)</content> Aspartate 14-36 <content [facility] aminotransferase styleCode="Bold"> Tristen hs [Enzymatic Aspartate Medical activity/volume] Aminotransferase Center in Serum or Plasma (AST) </content>29 IU/L<content styleCode="Italic s"> (14-36 IU/L)</content> UNK > 60 <content Saint styleCode="Bold"> Adore EGFR </content>86 Medical GFR<content Center styleCode="Italic s"> (> 60 GFR)</content> UNK 7-17 <content Saint styleCode="Bold"> Adore BUN </content>17 Medical MG/DL<content Center styleCode="Italic s"> (7-17 MG/DL)</content> Alanine 7-30 <content Saint aminotransferase styleCode="Bold"> Tristen hs [Enzymatic Alanine Medical activity/volume] Aminotransferase Center in Serum or Plasma (ALT) </content>20 IU/L<content styleCode="Italic s"> (7-30 IU/L)</content> Bilirubin.total 0.2-1.3 <content [facility] [Mass/volume] in styleCode="Bold"> Tristen hs Serum or Plasma Bilirubin Total Medical </content>0.5 Center MG/DL<content styleCode="Italic s"> (0.2-1.3 MG/DL)</content> Alkaline 38-126 <content Saint phosphatase styleCode="Bold"> Adore [Enzymatic Alkaline Medical activity/volume] Phosphatase (ALP) Cente r in Serum or Plasma </content>71 IU/L<content styleCode="Italic s"> (38-126 IU/L)</content> Albumin 3.5-5.0 <content [facility] [Mass/volume] in styleCode="Bold"> Tristen hs Serum or Plasma Albumin Medical </content>4.1 Center G/DL<content styleCode="Italic s"> (3.5-5.0 G/DL)</content> Procedure Social History Code Duration Value Status Description Data Source(s ) Caffeine Use 06/11/2020 completed NEXTGEN (Diaz nt Details 12:00:00 AM EDT [facility]) Smoking 06/11/2020 Unknown if completed Unknown if ever NEXTGEN ( Saint 12:00:00 AM EDT ever smoked smoked [facility]) Alcohol Use 02/01/2020 completed wine 1 glass NEXTGEN (Sa int Details 12:00:00 AM EDT daily [facility]) Vital Signs ID Date Data Source UNK Name Value Range Interpretation Code Description Data Source(s) Oxygen saturation 98 % 98 % [facility] ([facility] in Arterial blood [facility] by Pulse oximetry Center) Body mass index 21.61 kg/m2 Underweight 21.61 kg/m2 NEXTGE N ([facility] (BMI) [Ratio] [facility] Respiratory rate 18 /min 18 /min [facility]) Body temperature 36.72 Tosha 36.72 Tosha [facility] ([facility]) Heart rate 64 /min 64 /min NEXTGEN ([facility]) Diastolic blood 79 mm[Hg] 79 mm[Hg] [facility] ( [facility]) Systolic blood 137 mm[Hg] 137 mm[Hg] NEXTGEN ([facility]) Body weight 55.338 kg 55.338 kg [facility] ([facility]) Body height 160.02 cm 160.02 cm NEXTGEN ([facility]) Diastolic blood 72 mm[Hg] 72 mm[Hg] NEXTGEN ( [facility]) Systolic blood 126 mm[Hg] 126 mm[Hg] NEXTGEN (S nt [facility]) Oxygen saturation 97 % 97 % NEXTGEN ([facility] in Arterial blood [facility] by Pulse oximetry Center) Body mass index 22.57 kg/m2 Underweight 22.57 kg/m2 NEXTGE N ([facility] (BMI) [Ratio] [facility]) Respiratory rate 20 /min 20 /min [facility]EXT[facility] ([facility]) Body temperature 36.50 Tosha 36.50 Tosha [facility] ([facility]) Heart rate 69 /min 69 /min [facility]EXT[facility] ([facility]) Diastolic blood 79 mm[Hg] 79 mm[Hg] [facility] ( [facility]) Systolic blood 130 mm[Hg] 130 mm[Hg] NEXTGEN ([facility]) Body weight 57.788 kg 57.788 kg [facility]EXTGEN ([facility]) Body height 160.02 cm 160.02 cm [facility] ([facility]) Oxygen saturation 95 % 95 % NEXTGEN ([facility] in Arterial [facility] by Pulse oximetry Center) Body mass index 22.46 kg/m2 Underweight 22.46 kg/m2 NEXTGE N ([facility] (BMI) [Ratio] [facility]) Respiratory rate 20 /min 20 /min NEXT[facility] ([facility]) Body temperature 36.11 Tosha 36.11 Tosha [facility] ([facility]) Heart rate 68 /min 68 /min NEXTGEN ([facility]) Diastolic blood 73 mm[Hg] 73 mm[Hg] [facility] ( [facility]) Systolic blood 129 mm[Hg] 129 mm[Hg] NEXTGEN ([facility]) Body weight 57.516 kg 57.516 kg [facility] ([facility]) Body height 160.02 cm 160.02 cm [facility] ([facility]) Oxygen saturation 97 % 97 % NEXTGEN ([facility] in Arterial blood [facility] by Pulse oximetry Center) Body mass index 22.43 kg/m2 Underweight 22.43 kg/m2 NEXTGE N ([facility] (BMI) [Ratio] [facility]) Respiratory rate 18 /min 18 /min [facility] ([facility]) Body temperature 36.39 Tosha 36.39 Tosha [facility] ([facility]) Heart rate 65 /min 65 /min [facility] ([facility]) Diastolic blood 79 mm[Hg] 79 mm[Hg] [facility] ( [facility] pressure [facility]) Systolic blood 140 mm[Hg] 140 mm[Hg] [facility] ([facility]) Body weight 57.425 kg 57.425 kg [facility] ([facility]) Body height 160.02 cm 160.02 cm [facility] ([facility]) Patient Treatment Plan of Care Planned Activity Planned Date Details Description Data Source (s) Losartan Potassium 50 MG 07/28/2020 NEX TGEN (Saint Oral Tablet 12:00:00 AM [facility]) Losartan Potassium 50 MG 04/29/2020 NEX TGEN ([facility] Oral Tablet 12:00:00 AM [facility]) Losartan Potassium 50 MG 02/01/2020 NEX TGEN ([facility] Oral Tablet 12:00:00 AM [facility]) Losartan Potassium 50 MG 02/01/2020 NEX TGEN ([facility] Oral Tablet 12:00:00 AM [facility]) 120 ACTUAT Budesonide 0.16 01/08/2020 N EXTGEN (Saint MG/ACTUAT Dry Powder 12:00:00 AM [facility] Medical Inhaler [Pulmicort] Center) 12 HR Dextromethorphan 01/08/2020 NEXTG EN (Saint Hydrobromide 30 MG / 12:00:00 AM [facility] Guaifenesin 600 MG Extended Center) Release Oral Tablet [Mucinex DM] Chlorthalidone 25 MG Oral 01/08/2020 NE XTGEN (Saint Tablet 12:00:00 AM [facility] Center) atorvastatin 20 MG Oral 01/08/2020 NEXT GEN ([facility] Tablet 12:00:00 AM [facility] Center) Losartan Potassium 50 MG 01/08/2020 NEX TGEN ([facility] Oral Tablet 12:00:00 AM [facility]) Azithromycin 250 MG Oral 01/08/2020 NEX TGEN (Saint Tablet 12:00:00 AM [facility]) Losartan Potassium 50 MG 12/11/2019 NEX TGEN (Saint Oral Tablet 12:00:00 AM [facility] Center) atorvastatin 20 MG Oral 09/24/2019 NEXT GEN (Saint Tablet 12:00:00 AM [facility]) Losartan Potassium 50 MG 09/13/2019 NEX TGEN ([facility] Oral Tablet 12:00:00 AM [facility]) Losartan Potassium 50 MG 07/16/2019 NEX TGEN (Saint Oral Tablet 12:00:00 AM [facility]) Chlorthalidone 25 MG Oral 05/10/2019 NE XTGEN (Saint Tablet 12:00:00 AM [facility]) atorvastatin 20 MG Oral 05/10/2019 NEXT GEN ([facility] Tablet 12:00:00 AM [facility]) Losartan Potassium 50 MG 05/10/2019 NEX TGEN ([facility] Oral Tablet 12:00:00 AM [facility])
[2020-09-04 19:20] LABS: BASO % 0.6 % (0-2.0); EOS % 1.4 % (0-4.5); HEMATOCRIT 36.8 % (32.4-45.2); HEMOGLOBIN 12.5 GM/dL (10.7-15.3); LYMPH % 38.4 % (8-40); MCH 30.6 pg (25.7-33.7); MEAN PLT VOLUME 7.4 fl (7.5-11.1); MONO % 6.2 % (3.8-10.2); NEUT % 53.4 % (42.8-82.8); PLATELET COUNT 271 K/MM3 (134-434); RBC 4.09 M/mm3 (3.60-5.2); RDW 12.8 % (11.6-15.6)
[2020-09-04 19:26] LABS: INR 0.96 (0.83-1.09); PROTHROMBIN TIME (PATIENT) 11.6 SEC (9.7-13.0)
[2020-09-04 19:29] LABS: ACTIVATED PTT 30.7 SECONDS (25.2-36.5)
--- NOTE | 2020-09-04 19:32 | PDOC ---
History of Present Illness - General Chief Complaint: Chest Pain Stated Complaint: HYPERTENSION/CHEST PAINS Time Seen by Provider: 09/04/20 18:58 - History of Present Illness Initial Comments: HPI: 09/04/20 19:36 74 yo F PMH HTN, childhood heart murmur, presenting with chest discomfort. Notes that she had recent routine colonoscopy on Tuesday with Dr. Eubanks at [facility], has been having BP of 200s/100s since then when she checks on her home machine despite taking her Losartan as prescribed. Complains of having intermit tent sharp 8/10 sternal chest pain into both R and L chest, lasting seconds at a time, associated with sensation of palpitations. Further complains of an 8/10 frontal headache. Currently having only palpitations, no active chest pain. Notes that her mother had a stroke at a similar age and she is feeling anxious as a result. No family history of heart attacks. Brother had stroke at 60, mother of stroke at 72. No smoking history in the past, never had stroke or [place]. ROS: GENERAL/CONSTITUTIONAL: denies fever, chills, diaphoresis, generalized weakness HEAD, EYES, EARS, NOSE AND THROAT: denies rhinorrhea, nasal congestion NEUROLOGIC: denies headache, dizziness, mental status changes CARDIOVASCULAR: endorses chest pain and palpitations. Denies syncope, palpitations, irregular heart rate, lightheadedness, peripheral edema RESPIRATORY: denies cough, shortness of breath, dyspnea with exertion, orthopnea, wheezing, stridor, hemoptysis GASTROINTESTINAL: denies abdominal pain, abdominal distension, nausea, vomiting, diarrhea, constipation, melena, hematochezia GENITOURINARY: denies dysuria, frequency, urgency, hesitancy, hematuria, flank pain, genital pain MUSCULOSKELETAL: denies myalgia, arthralgia, joint swelling, back pain, neck pain SKIN: denies rash, itching HEMATOLOGIC/IMMUNOLOGIC: denies easy bleeding, easy bruising, lymphadenopathy, frequent infections ENDOCRINE: denies unexplained weight gain, unexplained weight loss, heat intolerance, cold intolerance PSYCHIATRIC: denies anxiety, depression, suicidal or homicidal ideation, hallucinations PE: Gen: well-developed, well-nourished, appears anxious Neuro: AAOX4, CN II-XII intact HEENT: atraumatic, normocephalic Neck: trachea midline, supple CV: regular rate, regular rhythm, no murmurs, rubs, or gallops Pulm: CTA b/l, no wheezing Abd: soft, non-distended, non-tender MSK: full ROM, intact pulses Extr: no edema, no deformities Skin: warm, dry MDM: Concern for ACS vs dysrhythmia. - CBC, CMP - EKG, trop - CXR - reassess EKG poor baseline quality, normal sinus at 64 bpm, AR 168, QRS 130, QTc 433. RBBB. 09/04/20 20:05 Initial CBC and CMP unconcerning, trop negative. HEART score is 5. 09/04/20 21:25 Reassessed, headache improved. Notes that she forgot to mention, chest pain had actually radiated into her throat and her left arm. Will admit to tele obs. Past History - Medical History Allergies/Adverse Reactions: Allergies Allergy/AdvReac Type Severity Reaction Status Date / Time No Known Allergies Allergy Verified 09/04/20 18:56 Home Medications: Ambulatory Orders Losartan Potassium [Cozaar -] 50 mg PO DAILY 09/04/20 COPD: No HTN: Yes Other medical history: colonoscopy 09/02/2020 - Immunization History Immunization Up to Date: No - Psycho-Social/Smoking History Smoking History: Never smoked *Physical Exam - Vital Signs Last Vital Signs Temp Pulse Resp BP Pulse Ox 98.1 F 62 12 170/88 100 09/04/20 18:06 09/04/20 19:52 09/04/20 19:52 09/04/20 19:52 09/04/20 19:52 Heart Score/ECG Review - History History: Moderately suspicious - Electrocardiogram EKG: Non specific repolarization disturbance - Age Age: >/= 65 - Risk Factors Risk Factors Heart Score: Yes Hx Hypertension Based on the list above the patient has:: 1-2 risk factors ED Treatment Course - LABORATORY CBC & Chemistry Diagram: 09/04/20 18:50 09/04/20 18:50 - ADDITIONAL ORDERS Additional order review: Laboratory Results 09/04/20 09/04/20 09/04/20 18:50 18:50 18:50 PT with INR 11.60 INR 0.96 PTT (Actin FS) 30.7 Sodium 138 Potassium 3.7 Chloride 104 Carbon Dioxide 27 Anion Gap 6 L BUN 10.2 Creatinine 0.5 L Est GFR (CKD-EPI)AfAm 108.96 Est GFR (CKD-EPI)NonAf 94.01 Random Glucose 89 Calcium 9.0 Magnesium 2.1 Total Bilirubin 0.3 AST 16 ALT 18 Alkaline Phosphatase 66 Creatine Kinase 65 Troponin I < 0.02 Total Protein 7.0 Albumin 3.6 Blood Type B NEGATIVE Antibody Screen Negative 09/04/20 18:50 RBC 4.09 MCV 90.0 MCHC 34.0 RDW 12.8 MPV 7.4 L Neutrophils % 53.4 Lymphocytes % 38.4 Monocytes % 6.2 Eosinophils % 1.4 Basophils % 0.6 - Medications Given in the ED: ED Medications Discontinued Medications Generic Name Dose Route Start Last Admin Trade Name Freq PRN Reason Stop Dose Admin Acetaminophen 650 mg 09/04/20 20:31 09/04/20 20:46 Tylenol - PO 09/04/20 20:32 650 mg ONCE ONE Administration Discharge - Discharge Information Problems reviewed: Yes Clinical Impression/Diagnosis: Palpitations Chest pain Qualifiers: Chest pain type: unspecified Qualified Code(s): R07.9 - Chest pain, unspecified - Follow up/Referral - Patient Discharge Instructions - Post Discharge Activity
[2020-09-04 19:56] LABS: ALBUMIN 3.6 g/dl (3.4-5.0); ALK PHOS 66 U/L (45-117); ANION GAP 6 MMOL/L (8-16); BILIRUBIN,TOTAL 0.3 mg/dL (0.2-1); BLOOD UREA NITROGEN 10.2 mg/dL (7-18); CHLORIDE 104 mmol/L (98-107); CO2 27 mmol/L (21-32); CREATININE 0.5 mg/dL (0.55-1.3); GLUCOSE,RANDOM 89 mg/dL (74-106); MAGNESIUM 2.1 mg/dL (1.8-2.4); POTASSIUM 3.7 mmol/L (3.5-5.1); SGOT/AST 16 U/L (15-37); SGPT/ALT 18 U/L (13-61); SODIUM 138 mmol/L (136-145)
[2020-09-04] MEDS ORDERED: ACETAMINOPHEN 325 MG TABLET (FP) PO ONE (20:31)
--- NOTE | 2020-09-04 20:33 | PDOC ---
Attending Attestation - Resident Resident Name: Jennifer Hester - ED Attending Attestation I have performed the following: I have examined & evaluated the patient, The case was reviewed & discussed with the resident, I agree w/resident's findings & plan, Exceptions are as noted - HPI HPI: 09/04/20 20:31 See resident HPI - Physicial Exam PE: 09/04/20 20:31 Agree with documented exam - Medical Decision Making 09/04/20 20:31 High BP a/w chest pain with some typical features in moderate risk patient, palpitations, DONOVAN w/o worrisome features Symptomatic htn? f/u ekg, cxr, labs, Vinny dispo per clinical course likely admit Discharge - Discharge Information Problems reviewed: Yes Clinical Impression/Diagnosis: Palpitations Chest pain Qualifiers: Chest pain type: unspecified Qualified Code(s): R07.9 - Chest pain, unspecified - Follow up/Referral - Patient Discharge Instructions - Post Discharge Activity
[2020-09-04] MEDS ORDERED: ACETAMINOPHEN 325 MG TABLET (FP) ONE (20:41)
--- NOTE | 2020-09-04 22:26 | PN ---
Teaching Attending Note Name of Resident: Cecy Graham ATTENDING PHYSICIAN STATEMENT I saw and evaluated the patient. I reviewed the resident's note and discussed the case with the resident. I agree with the resident's findings and plan as documented. SUBJECTIVE: Patient is a 74 year old woman with a PMH of HTN and Murmur since childhood presenting to the ER with chest discomfort. Notes that she had recent routine colonoscopy on Tuesday with Dr. Eubanks at [facility], has been having BP of 200s/100s since then when she checks on her home machine despite taking her Losartan as prescribed. Complains of having intermittent sharp 8/10 sternal chest pain into both right and left chest, lasting seconds at a time, associated with sensation of palpitations. Has associated 8/10 frontal headache. Currently having only palpitations, no active chest pain. Her mother had a stroke at a similar age and she is feeling anxious as a result. No family history of heart attacks. Brother had stroke at 60, mother of stroke at 72. Never had stroke or [place]. Patient denies shortness of breath, abdominal pain, dizziness, fever, chills, nausea, vomiting, diarrhea, constipation, dysuria, frequency, urgency, melena, hematochezia or hematuria. Denies alcohol, tobacco or illicit drug use. No sick contacts or recent travels. OBJECTIVE: Alert Vital Signs Period Temp Pulse Resp BP Sys/Boone Pulse Ox Last 24 Hr 98.1 F 62-68 12-18 170-213/88-106 99-100 HEENT: No Jaundice, eye redness or discharge, PERRLA, EOMI. Normocephalic, atraumatic. External ears are normal and hearing is grossly intact. No nasal discharge. Neck: Supple, nontender. No palpable adenopathy or thyromegaly. No JVD Chest: Good effort. Clear to auscultation and percussion. Heart: Regular. No S3, rub or murmur Abdomen: Not distended, soft, nontender and no HSM. No rebound or guarding. Normal bowel sounds. Ext: Peripheral pulses intact. No leg edema. Skin: Warm and dry. No petechiae, rash or ecchymosis. Neuro: Alert. Oriented x3. CN 2-12 grossly intact. Sensation grossly intact in all four extremities and DTR are symmetric. Psych: Appropriate mood and affect. Good insight. Home Medications Medication Instructions Recorded Losartan Potassium [Cozaar -] 50 mg PO DAILY 09/04/20 Abnormal Lab Results 09/04/20 09/04/20 18:50 18:50 MPV 7.4 L Anion Gap 6 L Creatinine 0.5 L Current Medications Generic Name Dose Route Start Last Admin Trade Name Fredq PRN Reason Stop Dose Admin Enoxaparin Sodium 40 mg 09/05/20 10:00 Lovenox - SQ DAILY FABIÁN Hydrochlorothiazide 12.5 mg 09/05/20 10:00 Hctz - PO DAILY FABIÁN Losartan Potassium 100 mg 09/06/20 23:00 Cozaar - PO DAILY FABIÁN Metoprolol Tartrate 25 mg 09/04/20 23:57 09/05/20 00:17 Lopressor - PO 25 mg BID FABIÁN Administration ASSESSMENT AND PLAN: 1. Chest pain/?Hypertensive urgency vs emergency - Hypertensive emergency may explain chest pain, palpitation and headache. No acute abnormality on CXR. EKG shows NSR at 64/minute, RBBB, LAE and QTc 433 with no significant acute ischemic ST-T wave changes. No old EKG available for comparison. Initial troponin is negative. Will restart outpatient antihypertensive drugs - increase Losartan to 100 mg PO stat, then q HS, start Metoprolol 25 mg PO q 12 hours - first dose stat and HCTZ 12.5 mg PO am. Subsequently, will revise regimen to ensure [id number] excellent BP contro l. Patient counseled on the injurious effects of uncontrolled hypertension. Nonpharmacologic measures to control hypertension like weight loss, salt restriction and exercise stressed. Importance of adherence to treatment regimen and attainment of normotension emphasized. Will admit to telemetry, get urinalysis, repeat troponin & EKG, get ECHO, fasting lipids, TSH and consult Cardiology. 2. DVT prophylaxis - Lovenox 40 mg SQ q 24 hours. 3. Advance directives - Full code
--- OUTSIDE RECORDS SUMMARY | 2020-09-04 22:36 | XMS ---
:1945 Author Organization [facility] Care Team Providers Name Role Phone Harsha Obregon Unavailable Unavailable Harsha Obregon Unavailable Unavailable Ringstad, Sasha Unavailable Unavailable Ringstad, Sasha Unavailable Unavailable Ringstad, Sasha Unavailable Unavailable Ringstad, Sasha Unavailable Unavailable Ringstad, Sasha Unavailable Unavailable Ringstad, Sasha Unavailable Unavailable Ringstad, Sasha Unavailable Unavailable Ringstad, Sasha Unavailable Unavailable Ringstad, Sasha Unavailable Unavailable Ringstad, Sasha Unavailable Unavailable Ringstad, Sasha Unavailable Unavailable Enrrique Aguilar Unavailable [phone] Vazquez, Makenna Unavailable Unavailable Vazquez, Makenna Unavailable [...] is protected by Article 27-F of the [place] State Public Health law. If you continue you may haveaccess to information: Regarding HIV / AIDS; Provided by facilities licensed or operated by the [facility] Office of Mental Health; or Provided by the [facility] Office for People With Developmental Disabilities. If such information is present, then the following [facility] mandated warning applies: This information has been [...] law may result in a fine or chcf sentence or both. A general authorization for the release of medical or other information is NOT sufficient authorization for further disclosure. Encounters Encounter Providers Location Date Indications Data Source(s ) Attender: [facility] int [facility] 05:06:00 [facility] [place] PM EDT - Center) 07/28/2020 05:06:00 PM EDT Outpatient 06/23/2020 [facility] 12:48:00 Medical Center PM EDT Outpatient 06/23/2020 [facility] 12:00:00 Medical Center AM EDT Outpatient Attender: Makenna Aden 06/11/2020 [facility] VelezAdmitter: 04:53:00 Medical Ce nter Makenna PM EDT VelezReferrer: Makenna Vazquez OutpatientOFFICE/ Attender: [facility] 06/11/2020 [facility]ISSA [facility] EST PM EDT - Center) 06/11/2020 04:53:00 PM EDT Attender: [facility] 06/11/2020 CLARITZA N ([facility] 01:15:00 Adore Medic al PM EDT - Center) 06/11/2020 01:15:00 PM EDT Outpatient 06/11/2020 [facility] 11:25:00 Medical Center AM EDT Outpatient 06/11/2020 [facility] 12:00:00 Medical Center AM EDT Attender: [facility] 04/29/2020 [facility] [place] AM EDT - Center) 04/29/2020 09:15:00 AM EDT Attender: [facility] 03/28/2020 NEXTGEN ( int [facility] 02:18:00 [facility] [place] PM EDT - Center) 03/28/2020 02:18:00 PM EDT Attender: [facility] 02/01/2020 [facility] ( int [facility] 12:00:00 Ad[facility] l [place] PM EDT - Center) 02/01/2020 12:00:00 PM EDT Outpatient Attender: H 02/01/2020 [facility] 11:01:00 Medical [place] RingstadAdmitter AM EDT : Sasha Sosaerrer : Sasha Falcon OutpatientOFFICE/ Attender: [facility] 02/01/2020 [facility] ([facility] OUTPATIENT VISIT, [facility] 11:01:00 [facility] Medical EST AM EDT - Center) 02/01/2020 11:01:00 AM EDT Outpatient 02/01/2020 [facility] 10:38:00 Medical [place] AM EDT Outpatient 02/01/2020 [facility] 10:37:00 Medical [place] AM EDT Outpatient 02/01/2020 [facility] 12:00:00 Medical Center AM EDT Outpatient Attender: Amy Aden 01/18/2020 [facility] Jacque sephs [place] 02:11:00 Medical Cente r DOAdmitter: PM EST Rodika [place] DOReferrer: Amy [place] DO OutpatientOFFICE/ Attender: [facility] 01/18/2020 KARLEEGEN ([facility] OUTPATIENT VISIT, [facility] 02:11:00 [facility] Medical EST PM EST - Center) 01/18/2020 02:11:00 PM EST Outpatient 01/18/2020 [facility] 12:23:00 Medical Center PM EST Outpatient 01/18/2020 [facility] 12:00:00 Medical Center AM EST Attender: [facility] 01/16/2020 KARLEE EN ([facility] 04:27:00 Adore Medica l PM EST - Center) 01/16/2020 04:27:00 PM EST Outpatient 01/08/2020 [facility] 11:32:00 Medical Center AM EST Outpatient Attender: Amy Aden 01/08/2020 [facility] [place] 11:08:00 Medical Cente r DOAdmitter: AM EST Amy Osborne DOReferrer: Amy [place] DO OutpatientOFFICE/ Attender: Harsha [facility] 01/08/2020 NEXTGEN [facility] EST AM EST - Center) 01/08/2020 11:08:00 AM EST Outpatient 01/08/2020 [facility] 12:00:00 Medical Center AM EST Attender: [facility] 12/11/2019 NEXTGE N ([facility] 11:20:00 Adore Medica l AM EST - Center) 12/11/2019 11:20:00 AM EST Attender: [facility] 09/24/2019 NEXTGE N ([facility] 05:08:00 Adore Medica l PM EST - Center) 09/24/2019 05:08:00 PM EST Attender: [facility] 09/13/2019 NEXTGE N ([facility] 11:02:00 Adore Medica l AM EDT - Center) 09/13/2019 11:02:00 AM EDT Attender: [facility] 07/16/2019 NEXTGE N ([facility] 11:05:00 Adore Medica l AM EDT - Center) 07/16/2019 11:05:00 AM EDT Medications Medication Brand Start Product Dose Route Administrative Pharmacy [facility] Indications Reaction Description Data Name Date Form Instructions Instructions Source(s) Losartan [facility] TAKE 1 NEX TGEN Potassium AN 2020 TABLET(50 ([place] t 50 MG Oral 50MG 12:00: MG) BY MOUTH Adore Tablet TABLET 00 AM EVERY DAY Medic al LOSARTAN EDT [place]) 50MG TABLETS Losartan [facility] complet TAKE 1 NE XTGEN Potassium AN 2020 ed TABLET(50 ([place] t 50 MG Oral 50MG 12:00: MG) BY MOUTH Adore Tablet TABLET 00 AM EVERY DAY Medic al LOSARTAN EDT [place]) 50MG TABLETS Losartan [facility] complet TAKE 1 NE XTGEN Potassium AN 2020 ed TABLET(50 ([place] t 50 MG Oral 50MG 12:00: MG) BY MOUTH Adore Tablet TABLET 00 AM EVERY DAY Medic al LOSARTAN EDT [place]) 50MG TABLETS Losartan [facility] complet TAKE 1 NE XTGEN Potassium an [...] EST day Jacque sephs mg tablet Medical [place]) Losartan losartan 50 mg 01/08/2020 complet TAKE [...] Chris ephs LOSARTAN 50MG Medica l TABLETS [place]) atorvastatin 20 atorvastatin 20 09/24/2019 complet TAKE 1 TABLET BY NEXTGEN MG Oral Tablet mg tablet 12:00:00 AM ed ORAL ROUTE EVERY ([facility] atorvastatin 20 EST DAY Loco phs mg tablet Medical [place]) Losartan losartan 50 mg 09/13/2019 complet TAKE 1 TABLET NEXTGEN Potassium 50 MG tablet 12:00:00 AM ed (50MG) BY ORAL ([facility] Oral Tablet EDT ROUTE EVERY D AY Adore losartan 50 mg Medic al tablet [place]) Losartan losartan 50 mg 07/16/2019 complet TAKE 1 TABLET NEXTGEN Potassium 50 MG tablet 12:00:00 AM ed (50MG) BY ORAL ([facility] Oral Tablet EDT ROUTE EVERY D AY Adore losartan 50 mg Medic al tablet [place]) atorvastatin 20 atorvastatin 20 05/10/2019 1.00 ORAL c omplet take 1 tablet by NEXTGEN MG Oral Tablet mg tablet 12:00:00 AM {tbl} ed oral route every ([facility] atorvastatin 20 EDT day Loco phs mg tablet Medical [place]) Losartan losartan 50 mg 05/10/2019 complet TAKE 1 TABLET NEXTGEN Potassium 50 MG tablet 12:00:00 AM ed (50MG) BY ORAL ([facility] Oral Tablet EDT ROUTE EVERY D AY Adore losartan 50 mg Medic al tablet [place]) Chlorthalidone 25 chlorthalidone 05/10/2019 1.00 ORAL complet take 1 tablet by NEXTGEN MG Oral Tablet 25 mg tablet 12:00:00 AM {tbl} ed oral route every ([facility] chlorthalidone 25 EDT day Jacque sephs mg tablet Medical [place]) Insurance Providers Payer name Policy type Policy ID Covered Covered republican's Policy P oriana / Coverage republican ID relationship to Pichardo Inf ormation type pichardo [facility] [id number] SP [id number] CARE OPTIONS MEDICARE [id number] SP [id number] M [id number] [id number] 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 DIARRHEA Z71.89 Other specified OTHER SPECIFIED Diagnosis 02/01/2020 [place] [facility] counseling COUNSELING 11:01:00 AM EDT Medical C enter E78.5 Hyperlipidemia, HYPERLIPIDEMIA, Diagnosis 02/01/2020 [place] [facility] unspecified UNSPECIFIED 11:01:00 AM EDT Medical Center I10 Essential ESSENTIAL Diagnosis 02/01/2020 [facility] (primary) (PRIMARY) 11:01:00 AM EDT Medical C enter hypertension HYPERTENSION Z13.9 Encounter for ENCOUNTER FOR Diagnosis 01/18/2020 [facility] Jacque monroy screening, SCREENING, 02:11:00 PM EST Medical C enter unspecified UNSPECIFIED Z00.00 Encounter for ENCNTR FOR GENERAL Diagnosis 01/18/2020 Diaz zafar Adore general adult ADULT MEDICAL EXAM 02:11:00 PM [facility] medical W/O ABNORMAL examination FINDINGS without abnormal findings R05 Cough COUGH Diagnosis 01/08/2020 [facility] 11:08:00 AM EST Medical C enter Surgeries/Procedures Procedure Description Date Indications Data Source(s) OFFICE/OUTPATIENT VISIT, 06/11/2020 NEX TGEN ([facility] EST 12:00:00 AM EDT [facility] 06/11/2020 [place]) 12:00:00 AM EDT OFFICE/OUTPATIENT VISIT, 02/01/2020 NEX TGEN ([facility] EST 12:00:00 AM EDT [facility] 02/01/2020 [place]) 12:00:00 AM EDT OFFICE/OUTPATIENT VISIT, 01/18/2020 NEX TGEN ([facility] EST 12:00:00 AM EST [facility] 01/18/2020 [place]) 12:00:00 AM EST ROUTINE VENIPUNCTURE 01/18/2020 NEXTGEN ([facility] 12:00:00 AM EST [facility] 01/18/2020 [place]) 12:00:00 AM EST OFFICE/OUTPATIENT VISIT, 01/08/2020 NEX TGEN ([facility] EST 12:00:00 AM EST [facility] 01/08/2020 [place]) 12:00:00 AM EST Results ID Date Data Source [id number] 08/30/2020 09:17:00 AM EDT [facility] Name Value Range Interpretation Description Data Sup porting Code Source(s) Document(s ) 2019 Novel [facility] Coronavirus RNA Interpretation Unspecified Specimen Qualitative JACOB Probe Detection This lab was ordered by [id number] and reported by [facility]. ID Date Data Source [id number] 07/13/2020 05:04:00 PM EDT [facility] Name Value Range Interpretation Code Description Data Dipti rce(s) Supporting Document(s ) SARS-CoV-2 [facility] N gene Resp Ql JACOB+probe This lab was ordered by [facility] and reported by PM. ID Date Data Source Liver 06/12/2020 09:39:00 AM EDT [facility] Profile.[id number] Name Value Range Interpretation Description Data Sup [...] s"> (3.5-5.0 G/DL)</content> ID Date Data Source HematologyRou.[id number] 06/12/2020 09:39:00 AM EDT Diaz [facility] 0400 Name Value Range Interpretation Description Data [...] Hematocrit 36.0-46. <content [facility] [Volume 0 styleCode="Bold [facility] Fraction] of ">Hematocrit Medical Blood by </content>37.9 [...] (0-0.1 KCUMM)</content > ID Date Data Source GFR(Creatinine).[id number] 06/12/2020 09:39:[address] [facility] 0-0400 Name Value Range Interpretation Code Description Data Dipti rce(s) Supporting Document(s ) UNK > 60 <content [facility] Avitia styleCode="Bold"> Medical Cent er EGFR </content>86 GFR<content styleCode="Italic s"> (> 60 GFR)</content> ID Date Data Source CHMROUTINECCDA.[id number] 06/12/2020 09:39:[address] [facility] -0400 Name Value Range Interpretation Description Data Sup porting Code Source(s) Document(s ) UNK 2.3-3.5 <content [facility] styleCode="Bold Medical ">Globulin Center </content>3.0 G/DL<content styleCode="Ital ics"> (2.3-3.5 G/DL)</content> Protein 6.3-8.2 <content [facility] [Mass/volum styleCode="Bold Medical e] in Serum ">Total Protein Center or Plasma </content>7.0 G/DL<content styleCode="Ital ics"> (6.3-8.2 G/DL)</content> UNK >= 1.0 <content [facility] Adore styleCode="Bold Medical ">AG Ratio Center </content>1.3 <content styleCode="Ital ics"> (>= 1.0 )</content> ID Date Data Source [id number] 06/12/2020 09:39:00 AM EDT [facility] Perez [facility] Name Value Range Interpretation [...] MG/DL)</content> UNK > 60 <content [facility] styleCode="Bold"> Adore [...] s"> (3.5-5.0 G/DL)</content> ID Date Data Source Urinalysis.[id number] 06/11/2020 07:00:00 PM EDT Diaz [facility] 0 Name Value Range Interpretation Description Data Sup porting Code Source(s) Document(s ) UNK CLEAR <content Saint styleCode="Tommy Adore d">Urine Medical Clarity Center </content>CLOU DY <content styleCode="Carina lics"> (CLEAR )</content> Color of Urine YELLOW <content Saint styleCode="[facility] d">Color, Medical Urine Center </content>YELL OW <content styleCode="Carina lics"> (YELLOW )</content> UNK NEGATIVE <content Saint styleCode="[facility] d">Urine Medical Bilirubin Center </content>NEGA TIVE <content styleCode="Carina lics"> (NEGATIVE )</content> Specific 1.015-1.02 Above high <content Saint gravity of 5 normal styleCode="Tommy Pillais Urine by Test d">Urine Medical strip Specific Center [place] </content>>= 1.030 H<content styleCode="Carina lics"> (1.015-1.025 )</content> [...] Urine by 4.5-8.0 <content Saint Test strip styleCode="Tommy Adore d">Urine pH Medical </content>6.0 Center <content styleCode="Carina lics"> (4.5-8.0 )</content> Leukocyte NEGATIVE <content Saint esterase styleCode="Tommy Avitia [Presence] in d">Urine Medical Urine by Test Leukocyte Center strip </content>NEGA TIVE <content styleCode="Carina lics"> (NEGATIVE )</content> Nitrite NEGATIVE <content Saint [Presence] in styleCode="Tommy Avitia Urine by Test d">Urine Medical strip Nitrite Center </content>NEGA TIVE <content styleCode="Carina lics"> (NEGATIVE )</content> ID Date Data Source Liver 01/22/2020 09:29:00 AM EST [facility] Profile.[id number] Name Value Range Interpretation Description Data Sup [...] s"> (38-126 IU/L)</content> ID Date Data Source [id number] 01/22/2020 09:29:00 AM EST [facility] Center Name Value Range Interpretation Description Data Sup porting Code Source(s) Document(s ) UNK > 60 <content Saint styleCode="Tommy Adore d">HDL- Medical Cholesterol Center </content>69 MG/DL<content styleCode="Carina lics"> (> 60 MG/DL)</conten t> Triglyceride < 150 <content Saint [Mass/volume] in styleCode="Tommy Pillais Serum or Plasma d">Triglycerid [facility] </content>87 MG/DL<content styleCode="Carina lics"> (< 150 MG/DL)</conten t> UNK < 100 <content Saint styleCode="Tommy Adore d">LDL-Cholest [facility] </content>83 MG/DL<content styleCode="Carina lics"> (< 100 MG/DL)</conten t> Cholesterol -<200 <content Saint [Mass/volume] in styleCode="Tommy Adore Serum or Plasma d">Cholesterol Medical </content>169 Center MG/DL<content styleCode="Carina lics"> (-<200 MG/DL)</conten t> ID Date Data Source Hormones.[id number] 01/22/2020 09:29:00 AM EST [place] [facility] Name Value Range Interpretation Description Data Sup porting Code Source(s) Document(s ) Thyrotropin 0.465-4. <content Saint [Units/volume] 68 styleCode="Tommy Adore in Serum or d">Thyroid Medical Plasma by Stimulating Center Detection Hormone limit <= 0.05 </content>3.74 mIU/L MIU/L<content styleCode="Carina lics"> (0.465-4.68 MIU/L)</conten t> ID Date Data Source HematologyRou.[id number] 01/22/2020 09:29:00 AM EST Diaz nt [facility] 0400 Name Value Range Interpretation Description Data [...] (0.0 KCUMM)</content > ID Date Data Source GFR(Creatinine).[id number] 01/22/2020 09:29:[address] [facility] 0-0400 Name Value Range Interpretation Code Description Data Dipti rce(s) Supporting Document(s ) UNK > 60 <content [facility] styleCode="Bold"> Medical Cent er EGFR </content>86 GFR<content styleCode="Italic s"> (> 60 GFR)</content> ID Date Data Source CHMROUTINECCDA.[id number] 01/22/2020 09:29:[address] [facility] -0400 Name Value Range Interpretation Description Data Sup porting Code Source(s) Document(s ) UNK 4.2-5.8 <content [facility] styleCode="Bold Medical ">Hemoglobin Center A1C </content>5.5 %<content styleCode="Ital ics"> (4.2-5.8 %)</content> UNK >= 1.0 <content [facility] styleCode="Bold Medical ">AG Ratio Center </content>1.4 <content styleCode="Ital ics"> (>= 1.0 )</content> UNK 2.3-3.5 <content [facility] styleCode="Bold Medical ">Globulin Center </content>2.9 G/DL<content styleCode="Ital ics"> (2.3-3.5 G/DL)</content> Protein 6.3-8.2 <content [facility] [Mass/volum styleCode="Bold Medical e] in Serum ">Total Protein Center or Plasma </content>7.0 G/DL<content styleCode="Ital ics"> (6.3-8.2 G/DL)</content> ID Date Data Source BloodBank.[id number] 01/22/2020 09:29:00 AM EST Diaz zafar [facility] Name Value Range Interpretation Code Description Data Dipti rce(s) Supporting Document(s ) UNK NEGATIVE <content [facility] styleCode="Bold" Medical Cente r >Antibody Screen </content>NEGATI VE <content styleCode="Itali cs"> (NEGATIVE )</content> UNK <content [facility] styleCode="Bold" Medical Cente r >RH Type </content>NEGATI VE (Reference Range: not available)
UNK <content [facility] styleCode="Bold" Medical Cente r >Blood Type </content>GROUP B (Reference Range: not available)
ID Date Data Source [facility].[id number] 01/22/2020 09:29:00 AM EST [facility] Name Value Range Interpretation Description Data Sup [...] 3.5-5.3 <content [facility] [Moles/volume] in styleCode="Bold"> Loco banner Serum or Plasma Potassium Medical </content>4.6 Center MEQ/L<content styleCode="Italic s"> (3.5-5.3 MEQ/L)</content> Chloride 98-107 <content [facility] [Moles/volume] in styleCode="Bold"> Loco banner Serum or Plasma Chloride Medical </content>106 Center [...] NEXTGEN (Diaz nt Details 12:00:00 AM EDT [facility]) Smoking 06/11/2020 Unknown if completed Unknown if ever NEXTGEN ( [facility] 12:00:00 AM EDT ever smoked smoked [facility]) Alcohol Use 02/01/2020 completed wine 1 glass NEXTGEN (Sa int Details 12:00:00 AM EDT daily [facility]) Vital Signs ID Date Data Source UNK Name Value Range Interpretation Code Description Data Source(s) Oxygen saturation 98 % 98 % NEXTGEN ([facility] in Arterial blood [facility] Pulse oxim[facility]) Body mass index 21.61 kg/m2 Underweight 21.61 kg/m2 NEXTGE N ([facility] (BMI) [Ratio] [facility]) Respiratory rate 18 /min 18 /min NEXTGEN ([facility]) Body temperature 36.72 Tosha 36.72 Tosha NEXTGEN ([facility]) Heart rate 64 /min 64 /min NEXTGEN ([facility]) Diastolic blood 79 mm[Hg] 79 mm[Hg] [facility]EXTGEN ( [facility]) Systolic blood 137 mm[Hg] 137 mm[Hg] NEXTGEN ([facility]) Body weight 55.338 kg 55.338 kg NEXTGEN ([facility]) Body height 160.02 cm 160.02 cm NEXTGEN ([facility]) Diastolic blood 72 mm[Hg] 72 mm[Hg] NEXTGEN ( [facility]) Systolic blood 126 mm[Hg] 126 mm[Hg] NEXTGEN (S nt [facility]) Oxygen saturation 97 % 97 % NEXTGEN ([facility] in Arterial blood [facility]) Body mass index 22.57 kg/m2 Underweight 22.57 kg/m2 NEXTGE N ([facility] (BMI) [Ratio] [facility]) Respiratory rate 20 /min 20 /min NEXTGEN ([facility]) Body temperature 36.50 Tosha 36.50 Tosha [facility] ([facility]) Heart rate 69 /min 69 /min NEXTGEN ([facility]) Diastolic blood 79 mm[Hg] 79 mm[Hg] NEXTGEN ( [facility]) Systolic blood 130 mm[Hg] 130 mm[Hg] NEXTGEN ([facility]) Body weight 57.788 kg 57.788 kg NEXTGEN ([facility]) Body height 160.02 cm 160.02 cm [facility]) Oxygen saturation 95 % 95 % NEXTGEN ([facility] in Arterial blood [facility]) Body mass index 22.46 kg/m2 Underweight 22.46 kg/m2 NEXTGE N ([facility] (BMI) [Ratio] [facility]) Respiratory rate 20 /min 20 /min [facility] ([facility]) Body temperature 36.11 Tosha 36.11 Tosha [facility] ([facility]) Heart rate 68 /min 68 /min NEXTGEN ([facility]) Diastolic blood 73 mm[Hg] 73 mm[Hg] [facility] ( [facility] pressure [facility]) Systolic blood 129 mm[Hg] 129 mm[Hg] NEXTGEN (S nt pressure [facility]) Body weight 57.516 kg 57.516 kg [facility] ([facility]) Body height 160.02 cm 160.02 cm [facility] ([facility]) Oxygen saturation 97 % 97 % NEXTGEN ([facility] in Arterial blood [facility]) Body mass index 22.43 kg/m2 Underweight 22.43 kg/m2 NEXTGE N ([facility] (BMI) [Ratio] [facility]) Respiratory rate 18 /min 18 /min [facility] ([facility]) Body temperature 36.39 Tosha 36.39 Tosha [facility] ([facility]) Heart rate 65 /min 65 /min [facility] ([facility]) Diastolic blood 79 mm[Hg] 79 mm[Hg] [facility] ( [facility] pressure [facility]) Systolic blood 140 mm[Hg] 140 mm[Hg] [facility] ([facility]) Body weight 57.425 kg 57.425 kg [facility] ([facility]) Body height 160.02 cm 160.02 cm [facility] ([facility]) Patient Treatment Plan of Care Planned Activity Planned Date Details Description Data Source (s) Losartan Potassium 50 MG 07/28/2020 NEX TGEN (Saint Oral Tablet 12:00:00 AM [facility]) Losartan Potassium 50 MG 04/29/2020 NEX TGEN ([facility] Oral Tablet 12:00:00 AM [facility]) Losartan Potassium 50 MG 02/01/2020 NEX TGEN ([facility] Oral Tablet 12:00:00 AM [facility]) Losartan Potassium 50 MG 02/01/2020 NEX TGEN ([facility] Oral Tablet 12:00:00 AM [facility]) 120 ACTUAT Budesonide 0.16 01/08/2020 N EXTGEN (Saint MG/ACTUAT Dry Powder 12:00:00 AM [facility] Medical Inhaler [Pulmicort] Center) 12 HR Dextromethorphan 01/08/2020 NEXTG EN ([facility] Hydrobromide 30 MG / 12:00:00 AM [facility] Guaifenesin 600 MG Extended [place]) Release Oral Tablet [Mucinex DM] Chlorthalidone 25 MG Oral 01/08/2020 NE XTGEN ([facility] Tablet 12:00:00 AM [facility]) atorvastatin 20 MG Oral 01/08/2020 NEXT GEN ([facility] Tablet 12:00:00 AM [facility]) Losartan Potassium 50 MG 01/08/2020 NEX TGEN ([facility] Oral Tablet 12:00:00 AM [facility]) Azithromycin 250 MG Oral 01/08/2020 NEX TGEN ([facility] Tablet 12:00:00 AM [facility]) Losartan Potassium 50 MG 12/11/2019 NEX TGEN ([facility] Oral Tablet 12:00:00 AM [facility]) atorvastatin 20 MG Oral 09/24/2019 NEXT GEN ([facility] Tablet 12:00:00 AM [facility]) Losartan Potassium 50 MG 09/13/2019 NEX TGEN ([facility] Oral Tablet 12:00:00 AM [facility]) Losartan Potassium 50 MG 07/16/2019 NEX TGEN ([facility] Oral Tablet 12:00:00 AM [facility]) Chlorthalidone 25 MG Oral 05/10/2019 NE XTGEN ([facility] Tablet 12:00:00 AM [facility]) atorvastatin 20 MG Oral 05/10/2019 NEXT GEN ([facility] Tablet 12:00:00 AM [facility]) Losartan Potassium 50 MG 05/10/2019 NEX TGEN ([facility] Oral Tablet 12:00:00 AM [facility])
--- NOTE | 2020-09-04 23:07 | HP ---
CHIEF COMPLAINT: Chest pain HISTORY OF PRESENT ILLNESS: Patient is a 74 yo woman with hx of long standing hypertension, presenting with headache past 3 days and chest pain developing yesterday. She states that she had been in her usual state of good health until approx 4 weeks ago when she developed acute onset of watery diarrhea. No recollection of eating anything out of the ordinary. The diarrhea persisted for ~1.5 weeks then she decided to seek care with gastroenterology. She saw Dr. Buckley who treated for for suspected food poisoning, and gave her medication -- she does not recall the name, that she took for 2 weeks. He advised her to get a colonoscopy, which she had done at [facility] on Tuesday. During the procedure she was told she started vomiting and her BP went up to over 200/100. After the procedure her BP went back down and she went home. She continued monitoring her BP at home and it remained elevated 175-200 systolic the past few days. She developed a h/a the night after colonoscopy, which has fluctuated in intensity over the past couple days, at its worst 8/10 overlying the top of her head on both sides. This afternoon, developed chest pain, which prompted her visit today. Pain located overlying sternum and across the right and lefT chest, started out as a 2/10 and then progressed to 8/10, with a sensation of 'fluttering' in the chest. Positive for radiation to the jaw and down the left arm. Pain worse with movement. Denies recent lifting, changes in physical activity. Has never experienced this type of pain in the past. Patient states diagnosed with hypertension age 48, started on a BP med that she took for 20 years. Then 10 years ago began taking Losartan. She takes her Losa rtan religiously at 10 am every morning after her breakfast. She has been taking the same dose for the past 10 years. She is independent in all ADL, lives at home with her son. 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' PAST SURGICAL HISTORY: Hip replacement surgery L (2017) and R (2014) Social History: Smoking:never Alcohol:wine with dinner occasionally Drugs:never Allergies No Known Allergies Allergy (Verified 09/04/20 18:56) HOME MEDICATIONS: Home Medications Medication Instructions Recorded Losartan Potassium [Cozaar -] 50 mg PO DAILY 09/04/20 REVIEW OF SYSTEMS SEE HPI PHYSICAL EXAMINATION Vital Signs - 24 hr 09/04/20 09/04/20 09/04/20 18:06 18:30 19:52 Temperature 98.1 F Pulse Rate 68 64 Pulse Rate [ 64 62 Left Radial] Respiratory 18 13 12 Rate Blood Pressure 213/106 H Blood Pressure 189/96 H 170/88 [Left Arm] O2 Sat by Pulse 99 100 100 Oximetry (%) GENERAL: Awake, alert, and fully oriented, in no acute distress. HEAD: Normal with no signs of trauma. EYES: Pupils equal, round and reactive to light, extraocular movements intact, sclera anicteric NECK: Normal range of motion, supple without lymphadenopathy LUNGS: Breath sounds equal, clear to auscultation bilaterally. No accessory muscle use. HEART: Regular rate and rhythm, normal S1 and S2 without murmur ABDOMEN: Soft, non-tender, not distended, normoactive bowel sounds. MUSCULOSKELETAL: Normal range of motion at all joints. No CVA tenderness. LOWER EXTREMITIES: 2+ pulses, warm, well-perfused. No calf tenderness. No peripheral edema. NEUROLOGICAL: Cranial nerves II-XII intact. Normal speech. PSYCHIATRIC: Cooperative. Good eye contact. Appropriate mood and affect. SKIN: Warm, dry, normal turgor, no rashes or lesions noted, normal capillary refill. Laboratory Results - last 24 hr 09/04/20 09/04/20 09/04/20 18:50 18:50 18:50 WBC 6.0 RBC 4.09 Hgb 12.5 Hct 36.8 MCV 90.0 MCH 30.6 MCHC 34.0 RDW 12.8 Plt Count 271 MPV 7.4 L Absolute Neuts (auto) 3.2 Neutrophils % 53.4 Lymphocytes % 38.4 Monocytes % 6.2 Eosinophils % 1.4 Basophils % 0.6 Nucleated RBC % 0 PT with INR 11.60 INR 0.96 PTT (Actin FS) 30.7 Sodium 138 Potassium 3.7 Chloride 104 Carbon Dioxide 27 Anion Gap 6 L BUN 10.2 Creatinine 0.5 L Est GFR (CKD-EPI)AfAm 108.96 Est GFR (CKD-EPI)NonAf 94.01 Random Glucose 89 Calcium 9.0 Magnesium 2.1 Total Bilirubin 0.3 AST 16 ALT 18 Alkaline Phosphatase 66 Creatine Kinase 65 Troponin I < 0.02 Total Protein 7.0 Albumin 3.6 Blood Type Antibody Screen 09/04/20 18:50 WBC RBC Hgb Hct MCV MCH MCHC RDW Plt Count MPV Absolute Neuts (auto) Neutrophils % Lymphocytes % Monocytes % Eosinophils % Basophils % Nucleated RBC % PT with INR INR PTT (Actin FS) Sodium Potassium Chloride Carbon Dioxide Anion Gap BUN Creatinine Est GFR (CKD-EPI)AfAm Est GFR (CKD-EPI)NonAf Random Glucose Calcium Magnesium Total Bilirubin AST ALT Alkaline Phosphatase Creatine Kinase Troponin I Total Protein Albumin Blood Type B NEGATIVE Antibody Screen Negative ASSESSMENT/PLAN: Patient is a 74 yo woman with hx of long standing hypertension, presenting with headache past 3 days and chest pain developing yesterday, hypertensive tto 213/106 in the ED, admitted w/ possible hypertensive emergency v urgency. #Hypertensive Urgency vs. Emergency - BP on admission 213/106; decreasing to 170/88 without administration of medication - Most likely patient with uncontrolled hypertension at baseline - Unremarkable labs: troponin negative, creatinine 0.5 - Chest discomfort may be due to end organ damage; thus far troponins neg - Given Losartan 100, and Metoprolol tartrate 25 in ED - Begin HCTZ 12.5 daily in am - Begin metoprolol tartrate 25 bid in am - Raise home Losartan 50 to Losartan 100 - Monitor blood pressure - F/u urinalysis #Chest pain - R/o ACS - F/u troponin - EKG with NSR and RBBB, QTC 433 - F/u echo - F/u cardio consult - F/u TSH - F/u fasting lipids DVT prophylaxis: Lovenox 40 sq FEN - No standing fluids - Monitor electrolytes am - Low salt diet Dispo: Tele Family Medical History Family History: As Documented Visit type - Medication Review Med list reviewed for High Risk Meds patients 65 and older: Yes - Emergency Visit Emergency Visit: Yes ED Registration Date: 09/04/20 Care time: The patient presented to the Emergency Department on the above date and was hospitalized for further evaluation of their emergent condition. - New Patient This patient is new to me today: Yes Date on this admission: 09/05/20 - Critical Care Critical Care patient: No ATTENDING PHYSICIAN STATEMENT I saw and evaluated the patient. I reviewed the resident's note and discussed the case with the resident. I agree with the resident's findings and plan as documented. SUBJECTIVE: OBJECTIVE: ASSESSMENT AND PLAN:
[2020-09-04] MEDS ORDERED: LOSARTAN POTASSIUM 50 MG TABLET PO ONE (23:54)
[2020-09-05] MEDS ORDERED: LOSARTAN POTASSIUM 50 MG TABLET ONE (00:04)
[2020-09-05] MEDS: METOPROLOL TARTRATE 25 MG TABLET (FP) PO SCH ×3 (00:17→22:44)
[2020-09-05] MEDS ORDERED: METOPROLOL TARTRATE 25 MG TABLET (FP) ONE ×2 (01:49→09:21)
[2020-09-05 01:51] LABS: PH,URINE 6.5 (5.0-8.0); URINE APPEARANCE CLEAR; URINE BILIRUBIN NEGATIVE (NEGATIVE); URINE COLOR YELLOW; URINE GLUCOSE (UA) NEGATIVE (NEGATIVE); URINE KETONE NEGATIVE (NEGATIVE); URINE LEUK ESTERASE NEGATIVE (NEGATIVE); URINE NITRITE NEGATIVE (NEGATIVE); URINE PROTEIN NEGATIVE (NEGATIVE); URINE UROBILINOGEN 0.2 mg/dL (0.2-1.0)
--- NOTE | 2020-09-05 06:01 | CON.CARD ---
Consult Consult Specialty:: Cardiology Referred by:: Dr Esqueda Reason for Consultation:: HTN - History of Present Illness Chief Complaint: Headache, elevated BP, chest tightness History of Present Illness: 74 F with PMH HTN admitted with several weeks of elevated BP, headaches and episode of SSCP yesterday. BP on presentation 190/90 TNI negative x 2 Has been having BPs at home > 160mmHg, headaches and yesterday felt mild chest tightness prompting ER visit. CP now resolved. Normally, no exertional CP. No cardiac hx BP has been managed with Losartan, goes to [facility] for primary care. ECG: NSR 64, LAE, RBBB - History Source History Provided By: Patient Limitations to Obtaining History: No Limitations - Past Medical History [employer]: No: Alzheimer's, CVA, Dementia, Migraine, Multiple Sclerosis, Peripheral Neuropathy, Parkinson's, Seizure, Syncope, TIA, Vertigo, Other Cardio/Vascular: Yes: HTN Pulmonary: No: Asthma, Bronchitis, Cancer, COPD, O2 Dependent, Pneumonia, Previously Intubated, Pulmonary Embolus, Pulmonary Fibrosis, Sleep Apnea, Other Gastrointestinal: No: Ascites, Cancer, Constipation, Crohn's Disease, Diverticulitis, Diverticulosis, Esophageal Varices, Gastritis, GERD, GI Bleed, Hemorrhoids, Hiatal Hernia, Inflamatory Bowel Disease, Irritable Bowel Disease, Pancreatitis, Peptic Ulcer Disease, Ulcerative Colitis, Other Hepatobiliary: No: Cirrhosis, Cholelithiasis, Cholecystitis, Choledocholithias is, Hepatitis A, Hepatitis B, Hepatitis C, Other Renal/: No: Renal Failure, Renal Inusuff, BPH, Cancer, Hematuria, Hemodialysis, Neurogenic Bladder, Renal Calculi, UTI, Other Reproductive: No: Ectopic , Endometriosis, Fibroids, PID, Polycystic Ovary Syndrome, Postmenopausal, Other Heme/Onc: No: Anemia, B12 Deficiency, Bleeding Disorder, Cancer, Current Chemotherapy, Current Radiation Therapy, Hemochromatosis, Hypercoaguable State, Myeloproliferative Synd, Sickle Cell Disease, Sickle Cell Trait, Thrombocytopen ia, Other Infectious Disease: No: AIDS, C-Diff, Herpes Zoster, HIV, MRSA, STD's, Tuberculosis, VREF, Other Psych: No: Addictions, Anxiety, Bipolar, Depression, Panic, Psychosis, Schizophrenia, Other Musculoskeletal: No: Bursitis, Chronic low back pain, Hemiparesis, Hemiplegia, Osteoarthritis, Paraplegia, Other Rheumatology: No: Fibromyalgia, Gout, Lupus, Rheumatoid Arthritis, Sarcoidosis, Vasculitis, Other ENT: No: Allergic Rhinitis, Sinusitis, Other Endocrine: No: Rolando's Disease, Marsha's Disease, Diabetes Insipidus, Diabetes Mellitus, Hyperparathyroidism, Hyperthyroidism, Hypothyroidism, Osteopenia, SIADH, Other Dermatology: No: Basal Cell, Cellulitis, Eczema, Melanoma, Psoriasis, Squamous Cell, Other - Past Surgical History Past Surgical History: No: None, AAA Repair, AICD, Amputation, Appendectomy, Arthrosocopy, AV Fistula/Graft, Bariatric Surgery, Breast Biopsy, Bypass, CABG, Carotid Endarterectomy, Cataract Removal, Cholecystectomy, Colectomy, Colonoscopy, Colostomy, Craniotomy, , Cystectomy, Hernia Repair, Hysterectomy, Ileal Conduit, Ileosotomy, Joint Replacement, Kidney Transplant, Laminectomy, Liver Transplant, Mastectomy, Nephrectomy, Oopherectomy, Orchiectomy, Permanent Pacemaker, Prostatectomy, Splenectomy, Stent, Thoracotomy, TURP, Tonsillectomy, Tubal Ligation, Upper Endoscopy, Valve Replacement, Vasectomy, Vein Stripping/Ligation - Smoking History Smoking history: Never smoked - Social History ADL: Independent History of Recent Travel: No Home Medications - Allergies Allergies/Adverse Reactions: Allergies Allergy/AdvReac Type Severity Reaction Status Date / Time No Known Allergies Allergy Verified 09/04/20 18:56 - Home Medications Home Medications: Ambulatory Orders Losartan Potassium [Cozaar -] 50 mg PO DAILY 09/04/20 Family Medical History Family History: Unremarkable (not pertinent to his presentation) Review of Systems Findings/Remarks: see HPI - Review of Systems Constitutional: reports: No Symptoms Eyes: reports: No Symptoms HENT: reports: No Symptoms Neck: reports: No Symptoms Cardiovascular: reports: Chest Pain Respiratory: reports: No Symptoms Gastrointestinal: reports: No Symptoms Genitourinary: reports: No Symptoms Breasts: reports: No Symptoms Reported Musculoskeletal: reports: No Symptoms, Muscle Cramps Neurological: reports: Headache Endocrine: reports: No Symptoms Hematology/Lymphatic: reports: No Symptoms Psychiatric: reports: No Symptoms - Risk Factors Known Risk Factors: Yes: Age, Hypertension Vital Signs: Vital Signs Temperature 98 F 09/05/20 03:03 Pulse Rate 55 L 09/05/20 03:03 Respiratory Rate 17 09/05/20 03:03 Blood Pressure 142/81 09/05/20 03:03 O2 Sat by Pulse Oximetry (%) 96 09/05/20 03:03 Constitutional: Yes: No Distress, Calm HENT: Yes: Atraumatic, Normocephalic, Tonsillar Exudate Neck: Yes: Supple Respiratory: Yes: Regular, CTA Bilaterally Gastrointestinal: Yes: Soft (nt) Cardiovascular: Yes: Regular Rate and Rhythm Carotid Bruit: No Heart Sounds: Yes: S1, S2 Musculoskeletal: Yes: WNL Extremities: Yes: WNL Edema: No Neurological: Yes: Alert, Oriented ...Motor Strength: WNL Psychiatric: Yes: Alert, Oriented - Other Data Labs, Other Data: CBC, BMP 09/04/20 18:50 09/04/20 18:50 INR, PTT INR 0.96 (0.83-1.09) 09/04/20 18:50 Troponin, BNP 09/04/20 18:50 Troponin I < 0.02 Troponin, BNP 09/04/20 18:50 Troponin I < 0.02 Laboratory Tests 09/04/20 09/04/20 09/05/20 18:50 18:50 01:31 WBC Hgb Plt Count INR 0.96 Sodium Potassium Creatinine Troponin I < 0.02 Total LDL Cholesterol TSH 7.89 H 09/05/20 09/05/20 05:55 05:55 WBC 5.0 Hgb 12.5 Plt Count 269 INR Sodium 140 Potassium 4.1 Creatinine 0.6 Troponin I < 0.02 Total LDL Cholesterol 115 H TSH Echo: Pending Imaging - Results Chest X-ray: Report Reviewed EKG: Image Reviewed Assessment/Plan IMP: Chronic uncontrolled HTN Chest pain in setting of uncontrolled chronic HTN RBBB REC: 1. HTN: -Cont Losartan, Metoprolol added. Follow BP trend next 12-24 hours with goal of < 150/90 for age group 2. Chest pain, in setting hypertensive urgency: -Now completely resolved as BP has normalized. -Non ischemic ECG with negative cardiac enzymes -D/c Tele -Echo for EF -Acceptable for outpatient stress test if remains CP free with normal EF and serial stable repeat ECG 3. RBBB: -Echo for structural assessment. -Outpt f/u
[2020-09-05 06:44] LABS: BASO % 0.8 % (0-2.0); EOS % 2.2 % (0-4.5); HEMATOCRIT 35.9 % (32.4-45.2); HEMOGLOBIN 12.5 GM/dL (10.7-15.3); LYMPH % 47.9 % (8-40); MCH 31.2 pg (25.7-33.7); MCHC 34.9 g/dl (32.0-36.0); MEAN CELL VOLUME 89.4 fl (80-96); MEAN PLT VOLUME 7.3 fl (7.5-11.1); MONO % 8.1 % (3.8-10.2); PLATELET COUNT 269 K/MM3 (134-434); RBC 4.01 M/mm3 (3.60-5.2); RDW 13.2 % (11.6-15.6)
[2020-09-05 07:18] LABS: ALBUMIN 3.3 g/dl (3.4-5.0); ALK PHOS 57 U/L (45-117); ANION GAP 3 MMOL/L (8-16); BILIRUBIN,TOTAL 0.4 mg/dL (0.2-1); BLOOD UREA NITROGEN 13.1 mg/dL (7-18); CALCIUM 9.1 mg/dL (8.5-10.1); CHLORIDE 105 mmol/L (98-107); CHOLESTEROL 193 mg/dL (50-200); CO2 31 mmol/L (21-32); CREATININE 0.6 mg/dL (0.55-1.3); GLUCOSE,RANDOM 78 mg/dL (74-106); LDL CHOLESTEROL (ONLY SJRH) 115 mg/dL (5-100); POTASSIUM 4.1 mmol/L (3.5-5.1); SGOT/AST 14 U/L (15-37); SGPT/ALT 15 U/L (13-61); SODIUM 140 mmol/L (136-145); TOT PROT 6.5 g/dl (6.4-8.2); TRIGLYCERIDES 114 mg/dL (0-150)
[2020-09-05 07:19] LABS: HDL CHOLESTEROL 61 mg/dL (40-60)
[2020-09-05] MEDS ORDERED: ENOXAPARIN NA (PORCINE) 40 MG/0.4 ML DISP.SYRIN SQ ONE (09:22)
[2020-09-05] MEDS: HYDROCHLOROTHIAZIDE 12.5 MG CAPSULE (FP) PO SCH (09:50)
[2020-09-05] MEDS: ENOXAPARIN NA (PORCINE) 40 MG/0.4 ML DISP.SYRIN SQ SCH (09:50)
--- NOTE | 2020-09-05 11:41 | ECHO ---
Version: 1 Name: ISAI COWART Exam: Adult Echocardiogram Study Date: 09/05/2020, 10:28 AM Age: 74 Years MMode/2D Measurements & Calculations IVSd: 0.86 cm LVIDs: 2.23 cm LVIDd: 3.8 cm LVPWd: 0.86 cm LAV (MOD-bp): 61.8 ml LVOT diam: 1.97 cm Ao root diam: 2.49 cm LA dimension: 2.8 cm Doppler Measurements & Calculations MV E max bertrand: 89.7 cm/sec Med E/e': 19.6 MV A max bertrand: 94.1 cm/sec Med Peak E' Bertrand: 4.6 cm/sec MV E/A: 0.95 Lat E/e': 10.7 Lat Peak E' Bertrand: 8.4 cm/sec MR max P.1 mmHg Ao max P.9 mmHg Ao V2 max: 149.3 cm/sec TR max bertrand: 205.5 cm/sec TR max P.9 mmHg Left Ventricle Mild basal septal hypertrophy. Left ventricular systolic function is normal. Ejection Fraction = 55- 60%. The transmitral spectral Doppler flow pattern is suggestive of impaired LV relaxation. Right Ventricle The right ventricle is normal in size and function. Atria The left atrium is borderline dilated. Right atrial size is normal. Mitral Valve The mitral valve is normal in structure and function. There is mild mitral regurgitation. Tricuspid Valve The tricuspid valve is normal in structure and function. There is mild tricuspid regurgitation. Righ t ventricular systolic pressure is normal. Aortic Valve The aortic valve opens well. No hemodynamically significant valvular aortic stenosis. No aortic regu rgitation is present. Pulmonic Valve The pulmonic valve is normal in structure and function. There is no pulmonic valvular stenosis. Ther e is no pulmonic valvular regurgitation. Great Vessels The aortic root is normal size. Pericardium/Pleura There is no pericardial effusion. Summary Statements Mild basal septal hypertrophy. Left ventricular systolic function is normal. Ejection Fraction = 55-60%. The transmitral spectral Doppler flow pattern is suggestive of impaired LV relaxation. The right ventricle is normal in size and function. The left atrium is borderline dilated. There is mild mitral regurgitation. There is mild tricuspid regurgitation. Right ventricular systolic pressure is normal. There is no pericardial effusion. MD Escobar *Michelle 09/05/2020, 11:40 AM Ordering Physician: Cecy Graham Performed By: China Sykes
--- NOTE | 2020-09-05 13:45 | PN ---
Teaching Attending Note Name of Resident: Anshul Pollock ATTENDING PHYSICIAN STATEMENT I saw and evaluated the patient. I reviewed the resident's note and discussed the case with the resident. I agree with the resident's findings and plan as documented. SUBJECTIVE: Patient feels well, has no complaints OBJECTIVE: Vital Signs Period Temp Pulse Resp BP Sys/[place] Pulse Ox Last 24 Hr 98 F-98.1 F 55-68 12-18 142-213/80-106 96-100 Please see resident note for Physical exam Patient examined during bedside rounds ASSESSMENT AND PLAN: 74 y/o F with Hx of HTN who presents with chest pain and headache. Chest Pain/headache in setting of hypertensive urgency Continue Lostartan, Metoprolol, HCTZ at this time Goal BP <140/90 prior to discharge Patient reports that her BP was well controlled on losartan 50mg previously Caution for hypotension now that patient is on multiple medications ACS ruled out Elevated TSH plan to recheck in 6 months No physical exam findings of hypothyroidism PPx Lovenox
--- NOTE | 2020-09-05 13:51 | EKG ---
Test Reason : Blood Pressure : / mmHG Vent. Rate : 064 BPM Atrial Rate : 064 BPM P-R Int : 168 ms QRS Dur : 130 ms QT Int : 420 ms P-R-T Axes : 058 -12 020 degrees QTc Int : 433 ms POOR DATA QUALITY, INTERPRETATION MAY BE ADVERSELY AFFECTED NORMAL SINUS RHYTHM POSSIBLE LEFT ATRIAL ENLARGEMENT RIGHT BUNDLE BRANCH BLOCK ABNORMAL ECG NO PREVIOUS ECGS AVAILABLE Confirmed by LICHA DAMON MD ([id number]) on 09/05/2020 1:51:00 PM Referred By: Confirmed By:LICHA DAMON MD
--- NOTE | 2020-09-05 16:36 | PN ---
Physical Exam: SUBJECTIVE: Patient seen and examined at bedside this AM in ED. Denies any chest pain currently. OBJECTIVE: Vital Signs Period Temp Pulse Resp BP Sys/[place] Pulse Ox Last 24 Hr 98 F-98.1 F 54-68 12-20 142-213/76-106 96-100 GENERAL: NAD HEAD: Normal with no signs of trauma. EYES: EOMI Sclera Clear ENT: MMM NECK: Trachea midline, full range of motion, supple. LUNGS: CTAB HEART: RRR S1S2 ABDOMEN: Soft, NDNT. EXTREMITIES: No CCE NEUROLOGICAL: Cranial nerves II through XII grossly intact. PSYCH: Normal mood, normal affect. SKIN: Warm, dry, normal turgor, no rashes or lesions noted Laboratory Results - last 24 hr 09/04/20 09/04/20 09/04/20 18:50 18:50 18:50 WBC 6.0 RBC 4.09 Hgb 12.5 Hct 36.8 MCV 90.0 MCH 30.6 MCHC 34.0 RDW 12.8 Plt Count 271 MPV 7.4 L Absolute Neuts (auto) 3.2 Neutrophils % 53.4 Lymphocytes % 38.4 Monocytes % 6.2 Eosinophils % 1.4 Basophils % 0.6 Nucleated RBC % 0 PT with INR 11.60 INR 0.96 PTT (Actin FS) 30.7 Sodium 138 Potassium 3.7 Chloride 104 Carbon Dioxide 27 Anion Gap 6 L BUN 10.2 Creatinine 0.5 L Est GFR (CKD-EPI)AfAm 108.96 Est GFR (CKD-EPI)NonAf 94.01 Random Glucose 89 Calcium 9.0 Magnesium 2.1 Total Bilirubin 0.3 AST 16 ALT 18 Alkaline Phosphatase 66 Creatine Kinase 65 Troponin I < 0.02 Total Protein 7.0 Albumin 3.6 Triglycerides Cholesterol Total LDL Cholesterol HDL Cholesterol TSH Urine Color Urine Appearance Urine pH Ur Specific [place] Urine Protein Urine Glucose (UA) Urine Ketones Urine Blood Urine Nitrite Urine Bilirubin Urine Urobilinogen Ur Leukocyte Esterase Blood Type Antibody Screen 09/04/20 09/05/20 09/05/20 18:50 01:20 01:31 WBC RBC Hgb Hct MCV MCH MCHC RDW Plt Count MPV Absolute Neuts (auto) Neutrophils % Lymphocytes % Monocytes % Eosinophils % Basophils % Nucleated RBC % PT with INR INR PTT (Actin FS) Sodium Potassium Chloride Carbon Dioxide Anion Gap BUN Creatinine Est GFR (CKD-EPI)AfAm Est GFR (CKD-EPI)NonAf Random Glucose Calcium Magnesium Total Bilirubin AST ALT Alkaline Phosphatase Creatine Kinase Troponin I Total Protein Albumin Triglycerides Cholesterol Total LDL Cholesterol HDL Cholesterol TSH 7.89 H Urine Color Yellow Urine Appearance Clear Urine pH 6.5 Ur Specific [place] 1.007 L Urine Protein Negative Urine Glucose (UA) Negative Urine Ketones Negative Urine Blood Negative Urine Nitrite Negative Urine Bilirubin Negative Urine Urobilinogen 0.2 Ur Leukocyte Esterase Negative Blood Type B NEGATIVE Antibody Screen Negative 09/05/20 09/05/20 05:55 05:55 WBC 5.0 RBC 4.01 Hgb 12.5 Hct 35.9 MCV 89.4 MCH 31.2 MCHC 34.9 RDW 13.2 Plt Count 269 MPV 7.3 L Absolute Neuts (auto) 2.0 Neutrophils % 41.0 L D Lymphocytes % 47.9 H D Monocytes % 8.1 Eosinophils % 2.2 Basophils % 0.8 Nucleated RBC % 0 PT with INR INR PTT (Actin FS) Sodium 140 Potassium 4.1 Chloride 105 Carbon Dioxide 31 Anion Gap 3 L BUN 13.1 Creatinine 0.6 Est GFR (CKD-EPI)AfAm 102.62 Est GFR (CKD-EPI)NonAf 88.54 Random Glucose 78 Calcium 9.1 Magnesium 2.0 Total Bilirubin 0.4 AST 14 L ALT 15 Alkaline Phosphatase 57 Creatine Kinase Troponin I < 0.02 Total Protein 6.5 Albumin 3.3 L Triglycerides 114 Cholesterol 193 Total LDL Cholesterol 115 H HDL Cholesterol 61 H TSH Urine Color Urine Appearance Urine pH Ur Specific [place] Urine Protein Urine Glucose (UA) Urine Ketones Urine Blood Urine Nitrite Urine Bilirubin Urine Urobilinogen Ur Leukocyte Esterase Blood Type Antibody Screen Active Medications Generic Name Dose Route Start Last Admin Trade Name Freq PRN Reason Stop Dose Admin Enoxaparin Sodium 40 mg 09/05/20 10:00 09/05/20 09:50 Lovenox - SQ 40 mg DAILY FABIÁN Administration Hydrochlorothiazide 12.5 mg 09/05/20 10:00 09/05/20 09:50 Hctz - PO 12.5 mg DAILY FABIÁN Administration Losartan Potassium 100 mg 09/06/20 23:00 Cozaar - PO DAILY FABIÁN Metoprolol Tartrate 25 mg 09/04/20 23:57 09/05/20 09:50 Lopressor - PO 25 mg BID FABIÁN Administration ASSESSMENT/PLAN: Patient is a 74 yo woman with hx of long standing hypertension, presenting with headache past 3 days and chest pain developing yesterday. Chest pain 2/2 Hypertensive Urgency -Blood Pressure 213/106 on admission - Patient endorses compliance with medication -Losartan 50 increased to 100. Added HCTZ 12.5 Daily as well as Toprol 25 BID -Cardio on board. Recs appreciated . Trops Negative x 2. -echo--> Impaired LV relaxation. Nl Ef. HFpEF -Monitor BP overnight. titrate medications to acheive a goal BP <150/80 considering patient's age and minimal comorbidities. #Elevated TSH -F/u with PCP as outpatient. Will order FT4 in am. #FEN No Fluids Monitor Electrolytes Sodium Controlled #Dispo: Med Surg #DVT ppx: Lovenox Visit type - Emergency Visit Emergency Visit: Yes ED Registration Date: 09/04/20 Care time: The patient presented to the Emergency Department on the above date and was hospitalized for further evaluation of their emergent condition. - New Patient This patient is new to me today: Yes Date on this admission: 09/05/20 - Critical Care Critical Care patient: No - Discharge Referral Referred to [facility] No - Medication Review Med list reviewed for High Risk Meds patients 65 and older: Yes ATTENDING PHYSICIAN STATEMENT I saw and evaluated the patient. I reviewed the resident's note and discussed the case with the resident. I agree with the resident's findings and plan as documented. SUBJECTIVE: OBJECTIVE: ASSESSMENT AND PLAN:
[2020-09-06 01:15] VITALS: BMI 20.2
[2020-09-06 07:13] LABS: HEMATOCRIT 37.7 % (32.4-45.2); HEMOGLOBIN 13.2 GM/dL (10.7-15.3); MCH 31.7 pg (25.7-33.7); MCHC 34.9 g/dl (32.0-36.0); MEAN CELL VOLUME 90.8 fl (80-96); MEAN PLT VOLUME 7.8 fl (7.5-11.1); PLATELET COUNT 262 K/MM3 (134-434); RBC 4.16 M/mm3 (3.60-5.2); RDW 12.9 % (11.6-15.6); WHITE BLOOD COUNT 5.7 K/mm3 (4.0-10.0)
[2020-09-06 07:34] LABS: POTASSIUM 4.1 mmol/L (3.5-5.1)
[2020-09-06 07:38] LABS: BLOOD UREA NITROGEN 18.6 mg/dL (7-18)
[2020-09-06 07:41] LABS: CREATININE 0.6 mg/dL (0.55-1.3); PHOSPHOROUS 4.3 mg/dL (2.5-4.9)
[2020-09-06] MEDS: HYDROCHLOROTHIAZIDE 12.5 MG CAPSULE (FP) PO SCH (09:36)
[2020-09-06] MEDS: METOPROLOL TARTRATE 25 MG TABLET (FP) PO SCH (09:36)
[2020-09-06] MEDS: ENOXAPARIN NA (PORCINE) 40 MG/0.4 ML DISP.SYRIN SQ SCH (09:36)
--- NOTE | 2020-09-06 09:37 | PN ---
Progress Note, Physician Chief Complaint: DONOVAN, hi bp History of Present Illness: mild DONOVAN earlier today--resolved no cp, sob, palp - Current Medication List Current Medications: Active Medications Enoxaparin Sodium (Lovenox -) 40 mg SQ DAILY [facility] Last Admin: 09/05/20 09:50 Dose: 40 mg Documented by: Hydrochlorothiazide (Hctz -) 12.5 mg PO DAILY [facility] Last Admin: 09/05/20 09:50 Dose: 12.5 mg Documented by: Losartan Potassium (Cozaar -) 100 mg PO DAILY [facility] Metoprolol Tartrate (Lopressor -) 25 mg PO BID [facility] Last Admin: 09/05/20 22:44 Dose: 25 mg Documented by: - Objective Vital Signs: Vital Signs Temperature 97.8 F 09/06/20 08:50 Pulse Rate 54 L 09/06/20 08:50 Respiratory Rate 20 09/06/20 08:50 Blood Pressure 147/82 09/06/20 08:50 O2 Sat by Pulse Oximetry (%) 96 09/06/20 08:50 Constitutional: Yes: Well Nourished, No Distress, Calm Cardiovascular: Yes: Regular Rate and Rhythm, S1, S2. No: Gallop, Murmur Respiratory: Yes: Regular, CTA Bilaterally. No: Accessory Muscle Use, Rales, Wheezes Extremities: No: Cold Edema: No Neurological: Yes: Alert, Oriented Psychiatric: No: Agitated Labs: CBC, BMP 09/06/20 06:35 09/06/20 06:35 INR, PTT INR 0.96 (0.83-1.09) 09/04/20 18:50 Assessment/Plan Echo 09/09: nl LVEF. nl RV. nl valve fxn. no pulm HTN IMP: Chronic uncontrolled HTN Chest pain in setting of uncontrolled chronic HTN RBBB REC: 1. HTN: -better controlled currently, mostly at or close to goals (<140-150/90) -HR 49-50s--metopr 25 bid stopped. -BP up 170s today. continue losartan 100, hctz. -add amlodipine 5 first dose now -outpt bp f/u with me (pt was intending to see me as new pt soon) 2. Chest pain, in setting hypertensive urgency: -Now completely resolved as BP has normalized. -Non ischemic ECG with negative cardiac enzymes -D/c Tele -Echo for EF -Acceptable for outpatient stress test if remains CP free with normal EF and serial stable repeat ECG 3. RBBB: -Echo WNL -no further w/u indicated rec discharge in AM if bp overnight remains stable following amlodipine dose
[2020-09-06] MEDS ORDERED: LOSARTAN POTASSIUM 50 MG TABLET PO SCH ×2 (10:00→23:00)
--- NOTE | 2020-09-06 13:21 | PN ---
Progress Note (short form) - Note Progress Note: SUBJECTIVE: Seen and examined at bedside. Patient complaining of lightheadedness. Blood pressure in the 140s systolic. Patient is bradycardic to the high 40s and mid 50s on metoprolol. Due to symptomatic bradycardia we will transfer the patient to telemetry and discontinue metoprolol. OBJECTIVE Last Vital Signs Temp Pulse Resp BP Pulse Ox 97.9 F 49 L 20 145/79 99 09/06/20 12:13 09/06/20 12:13 09/06/20 12:13 09/06/20 12:13 09/06/20 12:13 PE: GEN: NAD HEENT: NC/AT [place] RESP: CTAB CARDS: RRR, -MRG ABD: soft, nt/nd +BS EXT: No swelling/Edema Neuro: Non-focal, A&OX3 Labs/Imaging: reviewed ASSESSMENT/PLAN 74-year-old female with history of hypertension, presented with headache and chest pain in the setting of hypertensive urgency. #Chest pain In the setting of hypertensive urgency. Resolved once blood pressure was controlled Troponins negative Echo shows heart failure with preserved ejection fraction Cardiology on board: Appreciate recommendations Blood pressure control #Symptomatic bradycardia After starting metoprolol. Discontinued Observe on telemetry overnight with plan to discharge in the morning #Hypertensive urgency Continue losartan 100 Continue hydrocortisone 12.5 Switch metoprolol to amlodipine 5 given bradycardia #Disposition: Transfer to telemetry with plan to discharge tomorrow if patient's bradycardia resolves and BP is controlled Visit type - Emergency Visit Emergency Visit: Yes ED Registration Date: 09/04/20 Care time: The patient presented to the Emergency Department on the above date and was hospitalized for further evaluation of their emergent condition. - New Patient This patient is new to me today: Yes Date on this admission: 09/06/20 - Critical Care Critical Care patient: No - Medication Review Med list reviewed for High Risk Meds patients 65 and older: Yes
[2020-09-06] MEDS ORDERED: amLODIPine BESYLATE 5 MG TABLET (FP) PO SCH (14:04)
[2020-09-06] MEDS ORDERED: amLODIPine BESYLATE 5 MG TABLET (FP) PO ONE (16:18)
[2020-09-07 06:47] LABS: BASO % 0.5 % (0-2.0); EOS % 2.9 % (0-4.5); HEMATOCRIT 37.5 % (32.4-45.2); LYMPH % 42.5 % (8-40); MCH 31.1 pg (25.7-33.7); MCHC 34.6 g/dl (32.0-36.0); MEAN CELL VOLUME 89.9 fl (80-96); MEAN PLT VOLUME 7.4 fl (7.5-11.1); MONO % 8.8 % (3.8-10.2); NEUT % 45.3 % (42.8-82.8); PLATELET COUNT 272 K/MM3 (134-434); RBC 4.18 M/mm3 (3.60-5.2); RDW 13.1 % (11.6-15.6); WHITE BLOOD COUNT 5.9 K/mm3 (4.0-10.0)
[2020-09-07 07:09] LABS: BLOOD UREA NITROGEN 21.8 mg/dL (7-18); CALCIUM 9.1 mg/dL (8.5-10.1)
[2020-09-07 07:12] LABS: CREATININE 0.7 mg/dL (0.55-1.3)
--- NOTE | 2020-09-07 08:29 | PN ---
Progress Note, Physician Chief Complaint: DONOVAN, latanya bp History of Present Illness: transferred to tele yesterday for c/o LH and HR 50s. metoprolol d/c'd, amlodipine started. (losartan and HCTZ continued). BP was 140s-170s throughout yesterday. 110s this AM still slightly LH. hasn't yet walked today, still in bed no cp, sob, palp - Current Medication List Current Medications: Active Medications Amlodipine Besylate (Norvasc -) 10 mg PO DAILY [facility] Enoxaparin Sodium (Lovenox -) 40 mg SQ DAILY [facility] Hydrochlorothiazide (Hctz -) 12.5 mg PO DAILY [facility] Losartan Potassium (Cozaar -) 100 mg PO DAILY [facility] - Objective Vital Signs: Vital Signs Temperature 97.4 F L 09/07/20 06:00 Pulse Rate 56 L 09/07/20 06:00 Respiratory Rate 18 09/07/20 06:00 Blood Pressure 112/58 L 09/07/20 06:00 O2 Sat by Pulse Oximetry (%) 97 09/06/20 22:00 Constitutional: Yes: Well Nourished, No Distress, Calm Cardiovascular: Yes: Regular Rate and Rhythm, S1, S2. No: Gallop, Murmur Respiratory: Yes: Regular, CTA Bilaterally. No: Accessory Muscle Use Extremities: No: Cold Edema: No Neurological: Yes: Alert, Oriented Psychiatric: No: Agitated Labs: CBC, BMP 09/07/20 06:10 09/07/20 06:10 INR, PTT INR 0.96 (0.83-1.09) 09/04/20 18:50 Assessment/Plan Echo 09/09: nl LVEF. nl RV. nl valve fxn. no pulm HTN tele: NSR, artifact (HR 50s-60s) IMP: Chronic uncontrolled HTN Chest pain in setting of uncontrolled chronic HTN RBBB REC: 1. HTN: -better controlled currently, mostly at or close to goals (<140-150/90) -HR 49-50s--metopr 25 bid stopped. -BP stable today, soft side. -continue losartan 100, hctz, amlodip 5. -if she can ambulate without signif LH/dizziness, cont same meds until sees me in office 2 wks. -outpt bp f/u with me (pt was intending to see me as new pt soon) 2. Chest pain, in setting hypertensive urgency: -Now completely resolved as BP has normalized. remains without cp. -Non ischemic ECG with negative cardiac enzymes -D/c Tele -Echo for EF -Acceptable for outpatient stress test if remains CP free with normal EF and serial stable repeat ECG 3. RBBB: -Echo WNL -no further w/u indicated
[2020-09-07 09:00] VITALS: TEMP 97.7
[2020-09-07] MEDS ORDERED: LOSARTAN POTASSIUM 50 MG TABLET PO SCH (10:00)
[2020-09-07] MEDS ORDERED: amLODIPine BESYLATE 10 MG TABLET (FP) PO SCH ×2 (10:00)
[2020-09-07] MEDS ORDERED: amLODIPine BESYLATE 5 MG TABLET (FP) PO SCH (10:00)
[2020-09-07] MEDS ORDERED: HYDROCHLOROTHIAZIDE 12.5 MG CAPSULE (FP) PO SCH (10:00)
[2020-09-07] MEDS ORDERED: ENOXAPARIN NA (PORCINE) 40 MG/0.4 ML DISP.SYRIN SQ SCH (10:00)
--- NOTE | 2020-09-07 11:52 | DS ---
Physical Examination Vital Signs: Vital Signs Temperature 97.7 F 09/07/20 08:56 Pulse Rate 67 09/07/20 09:48 Respiratory Rate 18 09/07/20 09:48 Blood Pressure 118/76 09/07/20 09:48 O2 Sat by Pulse Oximetry (%) 95 09/07/20 08:56 Constitutional: Yes: Well Nourished, No Distress, Calm Eyes: Yes: WNL, Conjunctiva Clear, EOM Intact HENT: Yes: WNL, Atraumatic, Normocephalic Cardiovascular: Yes: WNL, Regular Rate and Rhythm Respiratory: Yes: WNL, Regular, CTA Bilaterally Gastrointestinal: Yes: WNL, Normal Bowel Sounds, Soft Edema: No Neurological: Yes: WNL, Alert, Oriented Labs: CBC, BMP 09/07/20 06:10 09/07/20 06:10 Discharge Summary Problems reviewed: Yes Reason For Visit: PALPITATIONS, CHEST PAIN Current Active Problems Chest pain (Acute) Palpitations (Acute) Hospital Course: Patient presented with chest pain due to hypertensive urgency. Troponins were negative. Patient's losartan was increased to 100 mg from 50 and she was started on HCTZ and metoprolol. She then developed symptomatic bradycardia metoprolol was discontinued and replaced by amlodipine. Her blood pressure trended down into the 110s and bradycardia resolved. Patient will be discharged on losartan 100 mg and amlodipine 5 mg and will follow up with cardiology and her PCP as an outpatient for further management of her blood pressure. She has been distracted to take her blood pressure 2-3 times daily. Condition: Improved - Instructions Diet, Activity, Other Instructions: You were admitted with elevated blood pressure. You were started on new blood pressure medications. In the hospital you had a complication of bradycardia (slow heart rate) caused by the drug metoprolol, a beta chari. This medication was discontinued. Start taking Losartan 100mg daily Amlodipine 5mg daily Stop taking Losartan 50mg daily Please take your blood pressure 3 times a day and record it and follow up with your doctor for further management of your blood pressure. Disposition: HOME - Home Medications Comprehensive Discharge Medication List: Ambulatory Orders Losartan Potassium [Cozaar -] 50 mg PO DAILY 09/04/20 Amlodipine Besylate [Norvasc -] 5 mg PO DAILY #30 tablet 09/07/20 Losartan Potassium [Cozaar -] 100 mg PO DAILY #30 tablet 09/07/20 This patient is new to me today: No Emergency Visit: Yes ED Registration Date: 09/04/20 Care time: The patient presented to the Emergency Department on the above date and was hospitalized for further evaluation of their emergent condition. Critical Care patient: No - Discharge Referral Referred to [facility] No
[2020-09-07 12:56] VITALS: BP 132/70; PULSE 69
[2020-09-07] MEDS ORDERED: amLODIPine BESYLATE 10 MG TABLET (FP) PO ONE (16:14)
== END 2020-09-07 13:30 | disposition home or self-care (01) | DRG 305 ==
LOC: JER 18:04 → JERBED 21:17 → OBSVTOIN 23:59 → J8W 09-05 20:30 → J4W 09-06 16:56
PROVIDERS: ADMIT Internal Medicine; ATTEND Internal Medicine
DX: I16.0 Hypertensive urgency (principal); R00.1 Bradycardia, unspecified; R07.9 Chest pain, unspecified; R00.2 Palpitations; R51.9 Headache, unspecified; I45.10 Unspecified right bundle-branch block
CPT/HCPCS: 36415; 71045-TC-FY; 80048; 80053; 80061; 81003; 82550; 83721; 83735; 84100; 84439; 84443; 84484; 85025; 85027; 85610; 85730; 86850; 86900; 86901; 93005; 93010; 93306-TC; 99285-25; C9803; G0378; U0003

== ENCOUNTER 2024-11-30 14:04 | Emergency (ER) | payer OTHER, MEDICARE ==
[2024-11-30 14:11] VITALS: BP 134/78; PULSE 69; RESP 18; TEMP 97.8; BMI 20.5
== END 2024-11-30 16:00 | disposition home or self-care (01) ==
LOC: JER 14:04
DX: R05.9 Cough, unspecified (principal)
CPT/HCPCS: 71046-TC-FY; 93005; 93010; 99284-25